=== PATIENT | male | born 1975 | race Caucasian/White ===

== ENCOUNTER 2023-04-05 10:03 | Observation (INO) | payer OTHER, SELFPAY ==
[2023-04-05] VITALS (34 sets, daily range): BP systolic 125–211; BP diastolic 86–132; PULSE 83–100; RESP 11–24; TEMP 36.6–36.7; O2SAT 94–98; BMI 32.3
--- NOTE | 2023-04-05 10:09 | ECG_ITS ---
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 Measurements Intervals [place] Rate: 110 P: 36 ME: 140 QRS: 15 QRSD: 82 T: 72 QT: 299 QTc: 406 Interpretive Statements SINUS TACHYCARDIA WITH FREQUENT VENTRICULAR PREMATURE COMPLEXES ABNORMAL RHYTHM ECG No previous ECG available for comparison Electronically Signed On 04-05-2023 20:25:59 CDT by Karlie Azul M.D. [id number]
--- NOTE | 2023-04-05 10:26 | ECG_ITS ---
[facility] Test Date: 2023-04-05 Pat Name: Merrick Neri Department: Room: Gender: Male Director Life Insurance: : 1975 Requested By: Daniel Titus Order Number: [id number] Sonia MD: Karlie Azul M.D. Measurements Intervals [place] Rate: 108 P: 39 IA: 152 QRS: -1 QRSD: 85 T: 76 QT: 308 QTc: 414 Interpretive Statements SINUS TACHYCARDIA WITH FREQUENT VENTRICULAR PREMATURE COMPLEXES POSSIBLE LEFT ATRIAL ENLARGEMENT [-0.1mV P-WAVE IN V1/V2] ABNORMAL RHYTHM ECG No previous ECG available for comparison Electronically Signed On 04-05-2023 20:25:54 CDT by Karlie Azul M.D. [id number] f
--- NOTE | 2023-04-05 10:42 | W.ED.CHESTPA ---
HPI - Chest Pain General: Chief Complaint: Chest Pain Stated Complaint: chest pain/SOB Time Seen by Provider: 04/05/23 10:27 Source: patient Mode of arrival: ambulatory History of Present Illness: 48-year-old male presents to the emergency room with complaints of chest pain. He has had chest pain with exertion relieved by rest off and on for the last couple of months its been getting progressively worse over the last few days. He notices less and less exertion will precipitate chest pain. He estimates he can walk a couple of blocks and then he will get chest pain significant enough that he has to stop activity will take about 30 minutes before it resolves. Patient is obese is significantly hypertensive diabetic as well. He is a smoker. He has a family history of coronary disease his father had his first OH in his 40s. He is currently diaphoretic he denies any radiation of chest pain rates his current chest pain is 4 out of 10. Patient was not doing any exertional activity that precipitated the chest pain this morning. MD complaint: chest pain Onset (ago): month(s) Timing of current episode: episodic and increasing Prior episodes: Yes Onset: during rest Pain location: substernal Pain radiation: none Quality: aching and heaviness Relieving factors: nothing Exacerbating factors: exertion Associated symptoms: Reports palpitations; Deny abdominal pain, diaphoresis, dyspnea, fever(s), leg edema, nausea, sense of impending doom, syncope or vomiting Treatment prior to arrival: none Risk Factors: Coronary artery disease risk factors: diabetes, smoking history, hyperlipidemia, hypertension and family history of CAD before age 50 Review of Systems Const: Denies: fever(s), chills or diaphoresis ENMT: Denies: throat pain, ear or mastoid pain, nasal discharge or nasal congestion Card: Reports: chest pain, palpitations and irregular heart rhythm; Denies: syncope Resp: Denies: dyspnea GI: Denies: abdominal pain, nausea or vomiting : Denies: flank pain, dysuria, urinary frequency or urinary urgency Skin/Breast: Denies: rash or pruritus PFSH ED PFSH: Medical History (Updated 04/08/23 @ 09:41 by Daniel Taylor DO) Diabetes GERD (gastroesophageal reflux disease) Hypertension Surgical History (Updated 04/05/23 @ 12:48 by Jose Ortiz MD) History of elbow surgery History of foot surgery History of knee surgery History of mastoidectomy Family History Other CAD (coronary artery disease) Social History (Updated 04/05/23 @ 12:48 by Jose Ortiz MD) Smoking and tobacco status: current some day smoker cigarettes and smokeless tobacco Alcohol intake: current Physical Exam Const: GENERAL APPEARANCE: cooperative and comfortable ORIENTATION/CONSCIOUSNESS: Yes awake, Yes oriented to person, Yes oriented to place and Yes oriented to time OTHER: Diaphoretic HENMT: COMMON NORMALS: normocephalic, atraumatic and hearing grossly normal bilaterally HEAD & SCALP: normocephalic and atraumatic Resp: COMMON NORMALS: normal respiratory effort, No retractions, No use of accessory muscles and clear to auscultation bilaterally AUSCULTATION: clear to auscultation bilaterally Cardio: COMMON NORMALS: regular rate, regular rhythm and No murmurs present (Cardio) RATE: regular rate RHYTHM: regular rhythm GI: COMMON NORMALS: Soft to palpation and No hepatosplenomegaly present AUSCULTATION: Yes normoactive bowel sounds PALPATION: Yes Soft to palpation, No Tenderness to palpation present (GI), No Guarding due to palpation present (GI) and Yes No hepatosplenomegaly present Extremity: COMMON NORMALS: normal to inspection, capillary refill normal, no clubbing, cyanosis or edema, no calf tenderness and no pedal edema Neuro: SENSORIUM/ORIENTATION: Yes oriented to person, Yes oriented to place and Yes oriented to time Skin: COMMON NORMALS: no rashes or lesions noted GENERAL SKIN EXAM: no rashes or lesions noted Course Vital Signs: Vital signs: Vital Signs Temperature 97.9 F 04/06/23 10:10 Pulse Rate 82 04/06/23 10:10 Respiratory Rate 19 H 04/06/23 10:10 Blood Pressure 124/77 04/06/23 10:10 Pulse Oximetry 95 04/06/23 10:10 Oxygen Delivery Me thod Room Air 04/06/23 04:00 MDM - Chest Pain Medical Decision Making Patient initially treated as if you were a STEMI however there are no acute ST elevations. Clinically patient appears very unstable he is profusely diaphoretic clutching at his chest complaining of severe chest pain. EKGs repeated multiple times with no acute ST changes or elevations or depressions. Patient was loaded with Plavix given aspirin and also given heparin. CT of the head was negative he had complained of little numbness in his face. Discussed Dr. Segura. Because of patient's risk factors and history of progressively worsening chest pain now having chest pain at rest he will take patient directly to the [facility]. Lab Data 04/06/23 03:18 04/06/23 03:[address] 04/05/23 11:04 IMPRESSION: 1. No evidence of intracranial hemorrhage or mass effect. 2. Intracranial vascular calcification. 3. Prior postoperative changes canal wall up RIGHT mastoidectomy. 4. No acute intracranial findings. Discussed with Daniel Taylor DO at 04/05/2023 11:27 AM. Chest X-Ray 04/05/23 12:51 IMPRESSION: No acute findings. Laboratory Results WBC 6.7 10^3/uL (4.0-10.0) 04/05/23 10:40 RBC 6.60 10^6/uL (4.1-5.3) H 04/05/23 10:40 Hgb 15.4 g/dL (11.7-16.6) 04/05/23 10:40 Hct 51.2 % (42.0-52.0) 04/05/23 10:40 MCV 77.6 fl (80-94) L 04/05/23 10:40 MCH 23.3 pg (28.0-34.0) L 04/05/23 10:40 MCHC 30.1 g/dL (30.0-36.0) 04/05/23 10:40 RDW 18.1 % (12.1-15.1) H 04/05/23 10:40 Plt Count 170 10^3/cmm (130-400) 04/05/23 10:40 MPV 9.5 fL (7.4-10.4) 04/05/23 10:40 Neut % (Auto) 52.2 % 04/05/23 10:40 Lymph % (Auto) 36.0 % 04/05/23 10:40 Pierce % (Auto) 10.1 % 04/05/23 10:40 Eos % (Auto) 0.9 % 04/05/23 10:40 Baso % (Auto) 0.7 % 04/05/23 10:40 Neut # (Auto) 3.51 10^3/uL (1.8-7.7) 04/05/23 10:40 Lymph # (Auto) 2.4 10^3/uL (0.8-4.8) 04/05/23 10:40 Pierce # (Auto) 0.7 10^3/uL (0.2-0.9) 04/05/23 10:40 Eos # (Auto) 0.1 10^3/uL (0.0-0.8) 04/05/23 10:40 Baso # (Auto) 0.1 10^3/uL (0.0-0.1) 04/05/23 10:40 Nucleated RBC % (auto) 0 % 04/05/23 10:40 Nucleated RBCs # 0.0 /100WBC 04/05/23 10:40 Sodium 134 mmol/L (136-145) L 04/05/23 10:40 Potassium 4.0 mmol/L (3.5-5.1) 04/05/23 10:40 Chloride 92 mmol/L (98-107) L 04/05/23 10:40 Carbon Dioxide 26 mmol/L (22-29) 04/05/23 10:40 Anion Gap 20.0 (5-19) H 04/05/23 10:40 BUN 11 mg/dL (6-20) 04/05/23 10:40 Creatinine 0.8 mg/dL (0.7-1.2) 04/05/23 10:40 GFR Calculation 102.7 mL/min (90-130) 04/05/23 10:40 Glucose 168 mg/dL (65-115) H 04/05/23 10:40 POC Glucose 157 mg/dL (70-110) H 04/05/23 10:49 Calculated Osmolality 281 mOsm/kg (285-295) L 04/05/23 10:40 Calcium 11.2 mg/dL (8.5-10.5) H 04/05/23 10:40 Magnesium 1.6 mg/dL (1.7-2.3) L 04/05/23 10:40 Total Bilirubin 0.9 mg/dL (0.15-1.2) 04/05/23 10:40 AST 214 U/L (0-40) H 04/05/23 10:40 ALT 278 U/L (0-41) H 04/05/23 10:40 Alkaline Phosphatase 160 U/L (40-130) H 04/05/23 10:40 Troponin T Baseline 35 ng/L (0-15) H 04/05/23 10:40 Total Protein 8.7 g/dL (6.6-8.7) 04/05/23 10:40 Albumin 4.9 g/dL (3.5-5.2) 04/05/23 10:40 Globulin 3.8 g/dL (1.3-4.6) 04/05/23 10:40 TSH 1.39 uIU/mL (0.27-4.20) 04/05/23 10:40 Hepatitis A IgM Ab Non-reactive (Nonreactive) 04/05/23 10:40 Hep Bs Antigen Non-reactive (Nonreactive) 04/05/23 10:40 Hep B Core IgM Ab Non-reactive (Nonreactive) 04/05/23 10:40 Hepatitis C Antibody Non-reactive (Nonreactive) 04/05/23 10:40 Discharge Plan Discharge Patient Disposition: Admitted As Inpatient Admit Provider: Jose Ortiz Clinical Impression: Chest pain, Unstable angina pectoris Condition: Stable Discharge Diet: Cardiac and Diabetic Discharge Activity: Increase activity as tolerated Coding Level of Care Code ED Grain Oilseed Or Pasture Grower for Jigar Vallecillo
[2023-04-05] MEDS: morphine 4 mg/mL SDV 1 mL IVP (10:45)
[2023-04-05] MEDS: aspirin 81 mg Chew Tablet 324 MG PO (10:46)
[2023-04-05] MEDS: clopidogrel 300 mg Tablet 600 MG PO (10:46)
[2023-04-05 10:47] LABS: Basophils # 0.1 10^3/uL (0.0-0.1); Basophils % 0.7 %; Eosinophils # 0.1 10^3/uL (0.0-0.8); Eosinophils % 0.9 %; Hematocrit 51.2 % (42.0-52.0); Hemoglobin 15.4 g/dL (11.7-16.6); Lymphocytes # 2.4 10^3/uL (0.8-4.8); Mean Corpuscular HGB Conc 30.1 g/dL (30.0-36.0); Mean Corpuscular Hemoglobin 23.3 pg (28.0-34.0); Mean Corpuscular Volume 77.6 fl (80-94); Mean Platelet Volume 9.5 fL (7.4-10.4); Monocytes # 0.7 10^3/uL (0.2-0.9); Monocytes % 10.1 %; Neutrophils # 3.51 10^3/uL (1.8-7.7); Neutrophils % 52.2 %; Nucleated Red Blood Cells % 0 %; Platelet Count 170 10^3/cmm (130-400); Red Cell Distribution Width 18.1 % (12.1-15.1); White Blood Count 6.7 10^3/uL (4.0-10.0)
[2023-04-05] MEDS: nitroglycerin drip 50 MG/250 ML PREMIX IV (10:51)
[2023-04-05 10:59] LABS: Glucose Point of Care 157 mg/dL (70-110)
--- NOTE | 2023-04-05 11:04 | CT_ITS ---
WS: [id number] CT HEAD TECHNIQUE: Noncontrast CT of the head obtained from the skullbase to the vertex. CLINICAL INFORMATION: Accelerated hypertension right-sided facial numbness COMPARISON: None. DLP: All CT scans at [facility] use at least one of these dose optimization techniques: automated e xposure control; mA and/or kV adjustment per patient size (includes targeted exams where dose is matc hed to clinical indication); or iterative reconstruction. FINDINGS: No evidence of intracranial hemorrhage or mass effect. Ventricular system and basal cisterns are farias nt. Minimal small vessel changes with mild frontal parenchymal volume loss. No extra-axial fluid pedro ections. No evidence of mass or mass effect. Normal biswas-white differentiation. Paranasal sinuses and mastoid air cells are well aerated. Mild mucosal thickening in the ethmoid air cells. Intracranial vascular calcification. Prior postoperative changes canal wall up RIGHT mastoidec robert. Normal posterior nasopharynx. CT/CT head thrombolytic 52828 IMPRESSION: 1. No evidence of intracranial hemorrhage or mass effect. 2. Intracranial vascular calcification. 3. Prior postoperative changes canal wall up RIGHT mastoidectomy. 4. No acute intracranial findings. Discussed with Daniel Taylor DO at 04/05/2023 11:27 AM.
[2023-04-05] MEDS: heparin 5,000 unit/mL INJ 1 mL IV (11:05)
--- NOTE | 2023-04-05 11:06 | PC.PHAR ---
pt states he takes care of his own medications-pt states he stop taking his buspirone 15mg,fluoxetine 20mg and aripiprazole 10mg about 6 weeks ago-pt [facility] medications entered are what the pt states he takes
--- NOTE | 2023-04-05 11:12 | XACV_ITS ---
Exam Room: [facility] Ht: 198 cm Wt: 127 kg BSA: 2.67 m2 Gender: Male : 1975 Any Known Allergies: No known allergies Exam Priority: Routine Procedure(s): Procedure Description: Diagnostic procedure Procedure Description: Left Heart Catheterization Procedure Description: Left ventriculography Procedure Description: Coronary Angiography Diagnostic Cath Status: Urgent Diagnostic Findings * INDICATION: Unstable angina. * No significant disease noted in the Left Main, Left Anterior Descending, Right, or Circumflex coronary arteries. * Coronary angiography shows right dominance. Conclusions 1. No significant disease noted in the Left Main, Left Anterior Descending, Right, or Circumflex coronary arteries. 2. Normal left ventricular systolic function. Ejection fraction of 55%. Recommendations * Aggressive risk factor modification. * Outpatient cardiology follow up in 4 weeks. Diagnostic RX Recommendation: medical therapy and/or counseling Ventriculography Ejection Fraction: 55.0 % Pressures Phase:Rest AO : 154 / 85 ( 115 ) @ 12:47:00 PM 138 / 70 ( 96 ) @ 12:56:00 PM 140 / 75 ( 99 ) @ 12:56:00 PM LV : 167 / -29 / 3 @ 12:55:00 PM 166 / -19 / 8 @ 12:56:00 PM 172 / -15 / 12 @ 12:56:00 PM Valves Phase:DefaultPhase AV : 20.0 @ 6:49:37 AM AV Mean Gradient: 32.0 @ 6:49:37 AM 32.0 @ 6:49:37 AM Clinical Evaluation EBL: 5mL-10mL Procedural Details Procedure Consent Obtained. Pre-Procedure Time Out. Identified patient by full name and date of as verbalized by the patient/guarantor. Does the consent match the physician's order: Yes. Accurate & Complete Informed Consent: Yes. Inpatient/Outpatient History & Physical on Chart: Yes. If H&P is completed, is and addenduem needed: No. Visualize and Verify Site with Patient/Guarantor: N/A. Relevant Radiology Images available: Yes. The risks, benefits, and alternatives of sedation and/or procedure were discussed by physician. The patient agrees to continue. Procedure started. [facility] Clinical Fraility Score: 2: Well. Automotive Specialty Technician Indications: Worsening Angina/Unstable Angina. Chest Pain Symptom Assessment: Typical Angina Symptoms. Cardiovascular Instability: No. Correct patient, site and procedure confirmed by cath team. PERRLA. Strong, equal hand flavoring machine operator bilaterally. Lungs clear x 5 lobes. IV Site on Arrival: 18 gauge in the right anticubital. IV Site on Arrival: 18 gauge in the left anticubital. IV Fluids: 0.9% NaCl at KVO. 0 mL infused prior to oven laborer. Pre Procedural Pulses: bilateral dorsalis pedis was 3+. Pre Procedural Pulses: bilateral posterior tibial was 2+. Oxygen started at 2liters/min via nasal canula. bilateral groins was prepped with chloroprep then draped in the usual sterile fashion. Physician notified. Baseline sample Acquired. HR: 100 BPM. Patient's family unavailable. Equipment: 6F - Femoral. Cardiac Cath Pack. ACIST Manifold Kit Model BT 2000. Heparinized Saline (2 units/mL), 1000 mL bag. Kit, Micropuncture. Physician arrived. Physician scrubbed in. Immediate Pre-Procedure Time Out. Correct Patient: Yes; Correct Procedure: Yes; Correct Site: Yes; Correct Patient Position: Yes; Correct Supplies: Yes; Dried Flammable Prep: Yes; Blood Products Available: N/A;. Lidocaine 1% infiltrated to the right groin. Arterial access obtained with micropuncture set. A 5 sammarinese JL4 catheter in over the standard J wire. Multiple views taken of left coronary artery. Catheter removed over the standard J wire. A 5 sammarinese JR4 catheter in over the standard J wire. Multiple views taken of right coronary artery. Catheter removed over the standard J wire. A 5 sammarinese Angled Pig catheter in over the standard J wire. EDP Sample taken: LV 167/-30,3; HR: 103 BPM; SpO2: 98%. LV gram performed in KENNY @ 10 mL/second for a total of 30 mL. EDP Sample taken: LV 166/-20,8; HR: 99 BPM; SpO2: 100%. Pullback taken: LV 172/-16,12; AO 138/70(96); Mean: 32mmHg, Peak to Peak: 20mmHg, SEP: 10sec/min; HR: 100 BPM; SpO2: 99%. Catheter removed over the standard J wire. A Right femoral angiogram was performed to determine safe placement of closure device. A Angio-Seal VIP (St[employer] [facility]) was successful obtaining hemostatsis at the Right Femoral artery insertion site. Angioseal VIP placed without complications. No signs or symptoms of hematoma noted. Sterile dressing applied per usual sterile fashion. LOT # [id number]. EXP 2023-07-05. Post Procedure: Pulses reassessed and unchanged. PERRLA. Strong, equal hand flavoring machine operator bilaterally. No VTE prophylaxis required. Medication's Wasted: Heparin = 1000 Units. Total IV fluids: 30 mL. Post-op diagnosis: Non-obstructive CAD. Complications: none. Estimated blood loss: 5mL-10mL. Responsiveness - Normal response to verbal stimuli; alert and oriented, PERRLA. Airway - Unaffected, no intervention required; spontaneous ventilation. Circulation: W/N/L, pulses unchanged. Nausea/Vomiting: No. Procedure completed. Patient transferred by bed to CPRU. Vital chart was stopped. Access Site Site: Right Femoral artery Sheath Size: 6 Fr Hemostasis Method: Angio-Seal VIP (St. Tony) Hemostasis Success: Successful Procedure Medications Start: 11:41 AM Stop: 11:41 AM Medication: Versed Amount: 1 mg Route: I.V. Start: 11:41 AM Stop: 11:41 AM Medication: Fentanyl Amount: 50 mcg Route: I.V. Start: 11:43 AM Stop: 11:43 AM Medication: Hydralazine Amount: 10 mg Route: I.V. Start: 11:50 AM Stop: 11:50 AM Medication: Fentanyl Amount: 50 mcg Route: I.V. Start: 11:51 AM Stop: 11:51 AM Medication: Versed Amount: 1 mg Route: I.V. I, the attending physician, have reviewed and verified all procedure medications. Yes, all medications given per verbal order History/Risk Factors Hypertension: Yes Dyslipidemia: No Peripheral Arterial Disease (PAD): No Myocardial Infarction (NH): No Obesity: Yes Renal Disease: No Tobacco Use: Never Prior Interventions PCI: No CABG: No Valve Surgery: No Report Signatures Finalized by Tho Segura MD on 04/13/2023 11:25 AM
[2023-04-05 11:16] LABS: Blood Urea Nitrogen 11 mg/dL (6-20); Carbon Dioxide 26 mmol/L (22-29); Glomerular Filtration Rate 102.7 mL/min (90-130); Total Bilirubin 0.9 mg/dL (0.15-1.2); Total Protein 8.7 g/dL (6.6-8.7)
--- NOTE | 2023-04-05 11:16 | USCV_ITS ---
Merrick Neri Age: 48 Gender: M : 1975 Exam Date: 04/05/2023 15:18 Ordering Phys: Jose Ortiz MD Technologist: Wolfgang Alicia [place] [facility] [place]: chest pain BP: 125 / 92 HR: 84 Rhythm: Sinus Technical Quality: Adequate MEASUREMENTS (Male / Female) Normal Values 2D ECHO LVOT Diameter 2.1 cm LV Ejection Fraction MOD 2C 62.3 % LV Ejection Fraction 2C AL 61.0 % LA Diameter 4.0 cm LA Width 4.0 cm LA Height 5.6 cm RA Width 3.9 cm RA Height 4.7 cm Aorta at Sinotubular Diameter 2.6 cm M-MODE Aortic Annulus Diameter 3.4 cm LA Ao Ratio MM 1.2 MV E Point Septal Separation 0.4 cm DOPPLER AV Peak Velocity 154.0 cm/s LVOT Peak Velocity 90.0 cm/s AV Area Cont Eq vti 2.3 cm squared AV Area Cont Eq pk 2.1 cm squared MV Peak Velocity 70.0 cm/s MV Area PHT 3.7 cm squared Mitral E to A Ratio 1.0 MV E' Velocity 29.0 cm/s Mitral E to MV E' Ratio 6.3 Mitral E to LV E' Lateral Ratio 7.7 Mitral E to LV E' Septal Ratio 5.4 Right Atrial Pressure 8.0 mmHg PV Peak Velocity 113.7 cm/s RV Acceleration Time 0.1 s RV Ejection Time 0.3 s RV AcT/ET 0.5 FINDINGS Left Ventricle Left ventricle is normal in size. LV systolic function is normal with EF of 60-65%. No regional wall motion abnormalities are seen. Grade 1 diastolic dysfunction Right Ventricle Normal in size and function Right Atrium Normal in size Left Atrium Normal in size Mitral Valve Structurally normal mitral valve. Trace mitral regurgitation. Aortic Valve Structurally normal aortic valve. No significant stenosis or regurgitation seen. Tricuspid Valve Mild tricuspid regurgitation. Insufficient TR jet to calculate RVSP. Pulmonic Valve Not well-visualized Pericardium Normal Aorta Normal in size IVC Not well visualized CONCLUSIONS LV systolic function is normal with EF of 60 to 65%. Grade 1 diastolic dysfunction. Trace mitral regurgitation. Mild tricuspid regurgitation. No comparison studies are available Tho Segura MD (Electronically Signed) Final Date: 06 April 2023 08:45 S
[2023-04-05 11:18] LABS: Troponin(5th) Baseline 35 ng/L (0-15)
--- NOTE | 2023-04-05 11:28 | PM.CONSULT ---
Providers/Reason For Consult Consulting Physician/Specialty*: Tho Segura MD/ Cardiology Reason for Consult*: Unstable angina Requesting Physician: Dr Taylor Attending Physician: Dr Ortiz History of Present Illness History of Present Illness Merrick Neri is a 48 year old male with past medical history of diabetes, hypertension who presented to hospital with several hours of chest pain. It has improved but still ongoing. He is diaphoretic. EKG shows normal sinus rhythm with frequent PVCs. He also felt facial numbness on the right side. That has improved. His blood pressure was over 200 mmHg at presentation. He was put on nitro drip and her blood pressure is improved and were in 170 to 180 mmHg range. Patient has been having on and off chest pain for almost 2 months Review of Systems Const: Denies: fever(s), chills or diaphoresis ENMT: Denies: throat pain, ear or mastoid pain, nasal discharge or nasal congestion Card: Reports: chest pain, palpitations and irregular heart rhythm; Denies: syncope Resp: Denies: dyspnea GI: Denies: abdominal pain, nausea or vomiting : Denies: flank pain, dysuria, urinary frequency or urinary urgency Skin/Breast: Denies: rash or pruritus Medications/Allergies Home Medications Medication Instructions Recorded Confirmed Last Taken Type empagliflozin 25 mg tablet 25 mg PO QAM 04/05/23 04/05/23 04/05/23 08:00 History (Jardiance) glipizide 5 mg tablet 5 mg PO BID 04/05/23 04/05/23 04/05/23 08:00 History hydrochlorothiazide 25 mg tablet 25 mg PO QAM 04/05/23 04/05/23 04/05/23 08:00 History metformin 1,000 mg tablet 1,000 mg PO BID 04/05/23 04/05/23 04/05/23 08:00 History metoprolol succinate 200 mg 100 mg PO QAM 04/05/23 04/05/23 04/05/23 08:00 History tablet,extended release 24 hr omeprazole 20 mg capsule,delayed 20 mg PO QAM 04/05/23 04/05/23 04/05/23 08:00 History release prazosin 2 mg capsule 4 mg PO BEDTIME 04/05/23 04/05/23 Unknown History sildenafil 100 mg tablet 50 - 100 mg PO DAILY PRN Erectile 04/05/23 04/05/23 Unknown History Dysfunction spironolactone 25 mg tablet 50 mg PO QAM 04/05/23 04/05/23 04/05/23 08:00 History testosterone cypionate 200 mg/mL 200 mg IM Q14D 04/05/23 04/05/23 Unknown History intramuscular oil Allergies Allergy/AdvReac Type Severity Reaction Status Date / Time No Known Allergies Allergy Verified 04/05/23 11:00 Current Medications Generic Name Dose Route Start Last Admin Trade Name Freq PRN Reason Stop Dose Admin Heparin Sodium (Porcine) 0 unit 04/05/23 10:37 04/05/23 11:05 Heparin 5,000 Unit/Ml Inj 1 Ml IV 4,000 unit PRN PRN Administration Heparin weight-base protocol Protocol Nitroglycerin/Dextrose 50 mg in 250 mls @ 0 mls/hr 04/05/23 10:45 04/05/23 11:05 Nitroglycerin Drip IV 15 mcg/min .Q0M MIRIAM 4.5 mls/hr Titration Protocol Per Protocol PFSH Acute PFSH: Medical History Diabetes Hypertension Family History Other CAD (coronary artery disease) Vitals/I&O/Wt Last Vital Signs Temp 97.8 F 04/05/23 10:18 Pulse 84 04/05/23 10:18 Resp 22 H 04/05/23 10:45 BP 211/132 04/05/23 10:18 Pulse Ox 97 04/05/23 10:45 O2 Del Method Room Air 04/05/23 10:18 04/04/23 04/05/23 04/05/23 22:59 06:59 14:59 Intake Total 0.7 / 0.7 Balance 0.7 / 0.7 Weight last 48 hrs Weight 280 lb Physical Exam Narrative: GENERAL: Patient is alert, awake and oriented x3. [] NECK: No jugular vein distension. [] HEENT: No cyanosis. No icterus. No pallor. [] HEART: Regular S1 and S2. Grade 2/6 systolic murmur LUNGS: Clear to auscultate bilaterally. [] ABDOMEN: Soft CENTRAL NERVOUS SYSTEM: Grossly nonfocal. [] EXTREMITIES: Lower extremities with no edema bilaterally. Data 04/05/23 10:40 04/05/23 10:40 A&P Assessment and plan (1) Unstable angina: (2) Hypertension: (3) Diabetes: Plan Patient has significant chest pain symptoms that are ongoing associated with diaphoresis and significant PVCs. We will rule out hemorrhage with a CT scan and if no bleed, we will proceed with urgent coronary angiogram with possible percutaneous coronary intervention. Risks and benefits of the procedure of been discussed with the patient. Continue nitro drip for now. We will uptitrate antihypertensive medications after the procedure. Order echocardiogram. Diabetes management per primary team. Thank you for involving us with care of this patient. We will continue to follow. Please call with questions. Consult Attestations Medical Necessity Statement: Care expected to cross 2 midnights. Coding Level of Care Code Acute Code for [facility] Fwd Diagnoses Unstable angina I20.0 Hypertension I10 Diabetes E11.9
[2023-04-05 11:33] LABS: Albumin Level 4.9 g/dL (3.5-5.2); Chloride 92 mmol/L (98-107); Globulin 3.8 g/dL (1.3-4.6); Sodium 134 mmol/L (136-145)
[2023-04-05 11:49] LABS: Magnesium 1.6 mg/dL (1.7-2.3); Thyroid Stimulating Hormone 1.39 uIU/mL (0.27-4.20)
--- NOTE | 2023-04-05 12:05 | SUR.PHASEI ---
POST CATH NOTE Received patient from animal laboratory helper. Status post cardiac catheterization via the right radial approach. TR band in place- No hematoma formation noted. MD at bedside. Dr Segura in to discuss findings. Verbal post cath instructions went over with the patient which the understood. Call light given. Informed to call for needs.
--- NOTE | 2023-04-05 12:09 | ECG_ITS ---
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 Measurements Intervals [place] Rate: 100 P: 29 [place]: 164 QRS: 15 QRSD: 90 T: 72 QT: 316 QTc: 409 Interpretive Statements SINUS TACHYCARDIA WITH FREQUENT VENTRICULAR PREMATURE COMPLEXES ABNORMAL RHYTHM ECG Compared to ECG 04/05/2023 10:38:49 No significant changes Electronically Signed On 04-05-2023 20:30:00 CDT by Karlie Azul M.D. [id number]
[2023-04-05 12:14] LABS: Alanine Aminotransferase 278 U/L (0-41); Alkaline Phosphatase 160 U/L (40-130); Aspartate Amino Transferase 214 U/L (0-40); Calcium 11.2 mg/dL (8.5-10.5); Glucose 168 mg/dL (65-115); Osmolality Calculated 281 mOsm/kg (285-295)
--- NOTE | 2023-04-05 12:43 | PM.HP ---
Providers/Chief Complaint Admitting Physician: Jose Ortiz MD Chief Complaint: chest pain/SOB History of Present Illness Merrick Neri is a 48 year old male urgency department with complaints of chest discomfort, on and off for the last month that seem to be related to exertion and go away with rest. In the last several days the discomfort has been persistent. He reports it is a dull, to sharp ache in the left side of his chest. No nausea or vomiting. It is associated with some shortness of breath. Denies any blood in his stool, black or tarry stools, abdominal pain. Usually when the discomfort comes on it lasts 30 minutes to an hour. He has not been ill lately with any fever, or cough. He is not for sure what his blood pressures been running.He has had a little bit of right facial numbness today. Denies any focal weakness. In the emergency department blood pressure was noted to be significantly elevated. EKG demonstrated trigeminy. He was placed on a nitroglycerin and heparin drip and cardiology was called. He went directly to angiogram suite. No flow-limiting disease was noted. He had complete resolution of his facial numbness with lowering of his blood pressure. Review of Systems General: Reports: 10 or more systems reviewed and unremarkable except in HPI and below Card: Reports: chest pain; Denies: swelling of feet/ankles Resp: Reports: dyspnea; Denies: productive cough or non-productive cough GI: Denies: abdominal pain, nausea, hematochezia or melena Medications/Allergies Home Medications Medication Instructions Recorded Confirmed Last Taken Type empagliflozin 25 mg tablet 25 mg PO [facility] 04/05/23 04/05/23 04/05/23 08:00 History (Jardiance) glipizide 5 mg tablet 5 mg PO BID 04/05/23 04/05/23 04/05/23 08:00 History hydrochlorothiazide 25 mg tablet 25 mg PO QAM 04/05/23 04/05/23 04/05/23 08:00 History metformin 1,000 mg tablet 1,000 mg PO BID 04/05/23 04/05/23 04/05/23 08:00 History metoprolol succinate 200 mg 100 mg PO QA 04/05/23 04/05/23 04/05/23 08:00 History tablet,extended release 24 hr omeprazole 20 mg capsule,delayed 20 mg PO [facility] 04/05/23 04/05/23 04/05/23 08:00 History release prazosin 2 mg capsule 4 mg PO BEDTIME 04/05/23 04/05/23 Unknown History sildenafil 100 mg tablet 50 - 100 mg PO DAILY PRN Erectile 04/05/23 04/05/23 Unknown History Dysfunction spironolactone 25 mg tablet 50 mg PO QAM 04/05/23 04/05/23 04/05/23 08:00 History testosterone cypionate 200 mg/mL 200 mg IM Q14D 04/05/23 04/05/23 Unknown History intramuscular oil Allergies Allergy/AdvReac Type Severity Reaction Status Date / Time No Known Allergies Allergy Verified 04/05/23 11:00 PFSH Acute PFSH: Medical History (Updated 04/05/23 @ 12:52 by Jose Ortiz MD) Diabetes GERD (gastroesophageal reflux disease) Hypertension Surgical History (Updated 04/05/23 @ 12:48 by Jose Ortiz MD) History of elbow surgery History of foot surgery History of knee surgery History of mastoidectomy Family History Other CAD (coronary artery disease) Social History (Updated 04/05/23 @ 12:48 by Jose Ortiz MD) Smoking and tobacco status: current some day smoker cigarettes and smokeless tobacco Alcohol intake: current Vitals/I&O/Wt Last Vital Signs Temp 97.8 F 04/05/23 10:18 Pulse 84 04/05/23 10:18 Resp 22 H 04/05/23 10:45 BP 211/132 04/05/23 10:18 Pulse Ox 97 04/05/23 10:45 O2 Del Method Room Air 04/05/23 10:18 04/04/23 04/05/23 04/05/23 22:59 06:59 14:59 Intake Total 0.7 / 0.7 Balance 0.7 / 0.7 Weight last 48 hrs Weight 127.006 kg Physical Exam Narrative: General exam is a white male, reporting chest discomfort when I initially saw him at approximately 2/10. Denied any facial numbness. HEENT: Atraumatic and normocephalic. Oropharynx clear Neck is supple no lymphadenopathy or thyromegaly Cardiovascular regular rate and rhythm, no murmur Lungs clear no wheezing or crackles Abdomen is soft nontender with positive bowel sounds. No obvious organomegaly exams deferred Extremities no cyanosis clubbing or edema, cap refill brisk Skin no rash Neuro no focal deficits Data 04/05/23 10:40 04/05/23 10:40 Other Labs: LFTs are elevated. AST 214, ALT 278, alk phos 160, troponin 35, bilirubin normal, TSH normal, magnesium low at 1.6. Calcium 11.2, elevated. Albumin 4.9. CT no acute changes. Some vascular calcification is noted. I have ordered a chest x-ray Which I reviewed demonstrates trigeminy, normal axis, nonspecific ST-T wave changes. Rate is approximately 100. Rhythm is sinus. A&P Assessment and plan (1) Chest pain: Patient presented to the hospital with significant chest discomfort. There was concern for acute coronary syndrome and he was taken to angiogram lab where no flow-limiting stenosis was noted. Likely his chest discomfort was secondary to hypertensive emergency. This resolved with nitroglycerin drip and lowering of blood pressure. At this point we will continue aspirin 81 mg daily Obtain a chest x-ray Check lipid profile in the morning (2) Hypertensive urgency: Patient presented with hypertensive emergency Symptoms included right facial numbness, chest discomfort The symptoms have since resolved with a blood pressure lowering He did take his losartan this morning. Will provide hydralazine as needed. We will initiate losartan 50 mg a day first dose now. Continue his Aldactone. Stop hydrochlorothiazide secondary to hypercalcemia. Consider adding other blood pressure medicine as needed, such as amlodipine. Associated with bigeminy. TSH checked and normal (3) Transaminitis: Patient presents with transaminitis. He reports he drinks on occasion. I do not see evidence of alcohol withdrawal currently. We will obtain acute hepatitis panel. Repeat LFTs in the morning. Consider imaging as an outpatient or inpatient depending on clinical course and repeat enzyme levels (4) Hypercalcemia: Hypercalcemia is noted on laboratory We will hydrate, hold hydrochlorothiazide, and reevaluate with a calcium level in the morning (5) Diabetes: Consistent carb diet Insulin sliding scale Plan Hypomagnesemia, supplement history of obstructive sleep apnea. BiPAP at night when sleeping Multiple other medical problems as outlined in past medical history Full code SCDs for DVT prophylaxis. Was on heparin drip which does not need to be continued. No anticoagulation tonight as just received angiogram and currently contraindicated. Reevaluate tomorrow Attestations Medical Necessity Statement*: Will need less than 2 midnight stay for evaluation and treatment of chest discomfort and hypertensive emergency Diagnoses Chest pain R07.9 Hypertensive urgency I16.0 Transaminitis R74.01 Hypercalcemia E83.52 Diabetes E11.9 Time Spent (min) 49
--- NOTE | 2023-04-05 12:46 | USCV_ITS ---
Merrick Neri Age: 48 Gender: M : 1975 Exam Date: 04/05/2023 14:55 Ordering Phys: Jose Ortiz MD Technologist: Wolfgang Alicia [place] [facility] [place]: facial numbness Risk Factors: Previous Vascular Surgery: Right Brachial BP: / Left Brachial BP: / Right Left Velocity (cm/s) Spectral Plaque Velocity (cm/s) Spectral Plaque Syst/Diast Broadening Syst/Diast Broadening 202.00/24.90 Prox CCA 162.90/ 26.10 138.30/18.60 Mid CCA 124.30/ 21.80 59.80/ 16.20 Distal CCA 95.70 / 20.50 110.40/26.30 Prox ICA 67.70 / 16.00 70.70/ 26.40 Mid ICA 71.50 / 19.20 69.10/ 30.30 Distal ICA 58.70 / 19.20 130.10 ECA 148.60 0.51 ICA/CCA 0.58 Antegrade Vertebral Antegrade 55.20/ 15.50 cm/s 61.30/ 12.80 cm/s Tri Subclavian Tri 193.0 94.30 0 FINDINGS Comparison: none available. No significant elevation of systolic or diastolic velocities. Waveforms are normal. Diffuse, mild bilateral scattered calcified plaque and intimal thickening throughout the common carotid arteries and extending through the bifurcation. Antegrade vertebral arteries. CONCLUSIONS Bilateral ICA stenosis less than 50%. Mild diffuse carotid atherosclerosis. Dr. Chelsey Felipe DO (Electronically Signed) Final Date: 06 April 2023 06:04 S
--- NOTE | 2023-04-05 12:51 | XRR_ITS ---
PROCEDURE INFORMATION: Exam: XR Chest Exam date and time: 04/05/2023 1:00 PM Age: 48 years old Clinical indication: Pain; Angina pectoris; Additional info: Chest pain TECHNIQUE: Imaging protocol: Radiologic exam of the chest. Views: 1 view. COMPARISON: No relevant prior studies available. FINDINGS: Lungs: Unremarkable. No consolidation. Pleural spaces: Unremarkable. No pleural effusion. No pneumothorax. Heart/Mediastinum: Unremarkable. No cardiomegaly. Bones/joints: Unremarkable. XR/XR chest 1V portable [id number] IMPRESSION: No acute findings.
[2023-04-05] MEDS: losartan 50 mg Tablet PO (13:22)
[2023-04-05] MEDS: magnesium sulfate premix 2 GM/50 ML PIGGYBACK IV (13:23)
[2023-04-05] MEDS: sodium chloride 0.9% 1,000 ML 75 ML IV (13:23)
[2023-04-05 13:29] LABS: Hepatitis A Antibody IgM Non-Reactive (Nonreactive); Hepatitis B Core IgM Non-Reactive (Nonreactive); Hepatitis B Surface Antigen Non-Reactive (Nonreactive); Hepatitis C Virus Antibody Non-Reactive (Nonreactive)
--- NOTE | 2023-04-05 13:50 | PC.NURSE ---
Arrived from [facility], right angiogram site looks great, no oozing or bleeding. Patient aware of activity restriction. Nurse will continue to monitor.
[2023-04-05] MEDS: perflutren protein-a microsphr 0.22 mg/mL SDV 3 mL IV (16:06)
--- NOTE | 2023-04-05 17:01 | ECG_ITS ---
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 Measurements Intervals [place] Rate: 82 P: 1 [place]: 163 QRS: 17 QRSD: 87 T: 79 QT: 358 QTc: 420 Interpretive Statements SINUS RHYTHM NONSPECIFIC T-WAVE ABNORMALITY Compared to ECG 04/05/2023 11:03:58 T-wave abnormality now present Sinus tachycardia no longer present Ventricular premature complex(es) no longer present Electronically Signed On 04-05-2023 20:31:14 CDT by Karlie Azul M.D. [email or web address] ([email or web address]) [email or web address] va medical [id number]
[2023-04-05 17:02] LABS: Troponin 5 6HR 27.88 ng/L (0-15)
[2023-04-05 17:04] LABS: Troponin 5 6HR Delta -7.12 ng/L (0-12)
[2023-04-05 17:30] LABS: Glucose Point of Care 314 mg/dL (70-110)
[2023-04-05] MEDS: insulin lispro 100 unit/1 mL SUBCUT ×2 (17:36→22:14)
[2023-04-05] MEDS: prazosin 1 mg Capsule 4 MG PO (21:35)
[2023-04-05 22:00] LABS: Glucose Point of Care 231 mg/dL (70-110)
[2023-04-06] VITALS: BP 123/50; PULSE 95; RESP 14; TEMP 36.9; O2SAT 97
[2023-04-06 03:37] LABS: Basophils % 0.8 %; Eosinophils # 0.1 10^3/uL (0.0-0.8); Eosinophils % 2.3 %; Hemoglobin 12.1 g/dL (11.7-16.6); Lymphocytes # 1.9 10^3/uL (0.8-4.8); Lymphocytes % 40.4 %; Mean Corpuscular HGB Conc 30.3 g/dL (30.0-36.0); Mean Corpuscular Hemoglobin 23.7 pg (28.0-34.0); Mean Corpuscular Volume 78.4 fl (80-94); Mean Platelet Volume 10.4 fL (7.4-10.4); Monocytes # 0.6 10^3/uL (0.2-0.9); Monocytes % 12.1 %; Neutrophils # 2.11 10^3/uL (1.8-7.7); Neutrophils % 44.2 %; Nucleated Red Blood Cells % 0 %; Platelet Count 130 10^3/cmm (130-400); Red Cell Distribution Width 16.9 % (12.1-15.1); White Blood Count 4.8 10^3/uL (4.0-10.0)
[2023-04-06 03:54] LABS: Alanine Aminotransferase 171 U/L (0-41); Albumin Level 3.8 g/dL (3.5-5.2); Alkaline Phosphatase 124 U/L (40-130); Anion Gap 13.8 (5-19); Aspartate Amino Transferase 80 U/L (0-40); Blood Urea Nitrogen 12 mg/dL (6-20); Calcium 9.4 mg/dL (8.5-10.5); Carbon Dioxide 27 mmol/L (22-29); Chloride 100 mmol/L (98-107); Globulin 2.5 g/dL (1.3-4.6); Glomerular Filtration Rate 143.2 mL/min (90-130); Glucose 136 mg/dL (65-115); Magnesium 1.8 mg/dL (1.7-2.3); Osmolality Calculated 286 mOsm/kg (285-295); Potassium 3.8 mmol/L (3.5-5.1); Sodium 137 mmol/L (136-145); Total Bilirubin 0.6 mg/dL (0.15-1.2); Total Protein 6.3 g/dL (6.6-8.7)
[2023-04-06 04:00] VITALS: BP 124/76; PULSE 95; RESP 15; TEMP 36.7; O2SAT 96
[2023-04-06 04:08] LABS: Chol HDL Ratio 4.77 mg/dL (1.0-5.00); Cholesterol 124 mg/dL (0-200); HDL Cholesterol 26 mg/dL (60-100); LDL Cholesterol Calculated 40 mg/dL (50-129); LDL HDL Ratio 1.54 RATIO (0.00-3.22); Triglycerides 292 mg/dL (0-150)
[2023-04-06 04:57] VITALS: PULSE 87
[2023-04-06] MEDS: metoprolol succinate ER (24 HR) 100 mg Tablet PO (05:23)
[2023-04-06 07:00] LABS: Glucose Point of Care 152 mg/dL (70-110)
[2023-04-06 08:00] VITALS: BP 124/77; PULSE 82; RESP 17
[2023-04-06] MEDS: insulin lispro 100 unit/1 mL SUBCUT (08:09)
[2023-04-06 08:35] VITALS: BP 124/77
[2023-04-06] MEDS: aspirin 81 mg EC Tablet PO (08:35)
[2023-04-06] MEDS: spironolactone 25 mg Tablet PO (08:35)
[2023-04-06] MEDS: pantoprazole DR 40 mg Tablet PO (08:35)
[2023-04-06] MEDS: losartan 50 mg Tablet PO (08:35)
--- NOTE | 2023-04-06 08:50 | PM.PN ---
Subjective Subjective: Patient is feeling well. He has on and off mild discomfort. Echo shows normal LV systolic function. Coronary angiogram did not reveal any significant CAD. Vitals/I&O/Wt Last Vital Signs Temp 98.0 F 04/06/23 04:00 Pulse 87 04/06/23 04:57 Resp 15 04/06/23 04:00 BP 124/77 04/06/23 08:35 Pulse Ox 96 04/06/23 04:00 O2 Del Method Room Air 04/06/23 04:00 04/05/23 04/06/23 04/06/23 22:59 06:59 14:59 Intake Total 1731 / 1781.7 1000 / 2781.7 480 / 480 Output Total 600 / 600 Balance 1131 / 1181.7 1000 / 2181.7 480 / 480 Weight last 48 hrs Weight 280 lb Physical Exam Narrative: GENERAL: Patient is alert, awake and oriented x3. [] NECK: No jugular vein distension. [] HEENT: No cyanosis. No icterus. No pallor. [] HEART: Regular S1 and S2. Grade 2/6 systolic murmur LUNGS: Clear to auscultate bilaterally. [] ABDOMEN: Soft CENTRAL NERVOUS SYSTEM: Grossly nonfocal. [] EXTREMITIES: Lower extremities with no edema bilaterally. Data 04/06/23 03:18 04/06/23 03:18 A&P Assessment and plan (1) Hypertension: (2) Diabetes: (3) Hypertensive urgency: (4) Chest pain: Plan Patient's symptoms likely secondary to hypertensive urgency. Will uptitrate metoprolol to 50 mg daily. This will also help with suppression of PVCs. Losartan started. Blood pressure is better controlled now. Echo shows normal LV systolic function. Coronary angiogram did not reveal significant CAD. Thank you for involving us with care of this patient.Patient is stable to be discharged from cardiology standpoint. Please call with questions. Attestations Medical Necessity Statement*: Care not expected to cross Coding Level of Care Code Acute Code for [facility] Diagnoses Hypertension I10 Diabetes E11.9 Hypertensive urgency I16.0 Chest pain R07.9
--- NOTE | 2023-04-06 09:32 | P.DS_ITS ---
Discharge Providers Date of Admission: 04/05/23 12:38 Date of Discharge: April 06, 2023 Attending Provider at Admission: Jose Ortiz MD Attending Provider at Discharge: Tho Segura M.D Primary Care Provider: Alber Serrano MD Diagnoses at Discharge Discharge Diagnosis (1) Hypertension: Status: Acute (2) Diabetes: Status: Acute (3) Hypertensive urgency: Status: Acute (4) Chest pain: Status: Acute Reason for Visit Reason for Visit: chest pain/SOB Hospital Course Hospital Course Lenny is a 48-year-old white male who presented to the hospital with complaints of chest discomfort and diaphoresis. Blood sugar was not low. EKG demonstrated multiple PVCs. Cardiology was consulted and there was concern for acute coronary syndrome and he was taken to angiogram lab. Initial troponin was 35, with repeated 6 hours of 27. Magnesium slightly low, LFTs elevated, calcium slightly high. Blood pressure was markedly high. He was placed on a nitroglycerin drip, and heparin was initiated as well. At angiogram no flow- limiting stenosis was noted. TSH was normal. Magnesium was supplemented. Patient was hydrated. CT was done as he had some right facial numbness. With lowering of blood pressure this went away. Losartan was added to his blood pressure medicine regimen and other adjustments occurred such as discontinuing his hydrochlorothiazide. With angiogram showing no significant coronary disease, blood pressure becoming normal with treatment, no recurrence of facial numbness it was thought he could be discharged on April 06. At that time he reported no significant chest discomfort, only a little remaining soreness. I discussed with him risks and benefits of medication, reason for it, and he was given an opportunity to ask questions. He agreed with the plan. He will follow-up with cardiology. He also see his primary care provider in 3 to 5 days. He is to hold his sildenafil and testosterone until reviewed by cardiology. He will not take his metformin until April 08. Other medication changes as noted in his discharge orders which were discussed with the patient in detail. Physical Exam Narrative: General exam no distress Neck is supple Cardiovascular regular rate and rhythm Lungs clear Abdomen is soft Extremities no cyanosis clubbing or edema, right groin with no significant hematoma. Distal pulses intact. Discharge Data Studies Completed and Pending Completed Studies During Hospitalization Category Date Time Status CT head thrombolytic [id number] Stat Cat Scan 04/05/23 11:04 Completed XR chest 1V portable [id number] Routine Exams 04/05/23 12:51 Completed CV carotid duplex BI* [id number] Routine Ultrasound 04/05/23 12:46 Completed CV. 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 No evidence of intracranial hemorrhage or mass effect. 2. Intracranial vascular calcification. 3. Prior postoperative changes canal wall up RIGHT mastoidectomy. 4. No acute intracranial findings. Discussed with Daniel Taylor DO at 04/05/2023 11:27 AM. Chest X-Ray 04/05/23 12:51 IMPRESSION: No acute findings. Laboratory Results WBC 4.8 10^3/uL (4.0-10.0) 04/06/23 03:18 RBC 5.10 10^6/uL (4.1-5.3) 04/06/23 03:18 Hgb 12.1 g/dL (11.7-16.6) 04/06/23 03:18 Hct 40.0 % (42.0-52.0) L 04/06/23 03:18 MCV 78.4 fl (80-94) L 04/06/23 03:18 MCH 23.7 pg (28.0-34.0) L 04/06/23 03:18 MCHC 30.3 g/dL (30.0-36.0) 04/06/23 03:18 RDW 16.9 % (12.1-15.1) H 04/06/23 03:18 Plt Count 130 10^3/cmm (130-400) 04/06/23 03:18 MPV 10.4 fL (7.4-10.4) 04/06/23 03:18 Neut % (Auto) 44.2 % 04/06/23 03:18 Lymph % (Auto) 40.4 % 04/06/23 03:18 Alfalfa % (Auto) 12.1 % 04/06/23 03:18 Eos % (Auto) 2.3 % 04/06/23 03:18 Baso % (Auto) 0.8 % 04/06/23 03:18 Neut # (Auto) 2.11 10^3/uL (1.8-7.7) 04/06/23 03:18 Lymph # (Auto) 1.9 10^3/uL (0.8-4.8) 04/06/23 03:18 Alfalfa # (Auto) 0.6 10^3/uL (0.2-0.9) 04/06/23 03:18 Eos # (Auto) 0.1 10^3/uL (0.0-0.8) 04/06/23 03:18 Baso # (Auto) 0.0 10^3/uL (0.0-0.1) 04/06/23 03:18 Nucleated RBC % (auto) 0 % 04/06/23 03:18 Nucleated RBCs # 0.0 /100WBC 04/06/23 03:18 Sodium 137 mmol/L (136-145) 04/06/23 03:18 Potassium 3.8 mmol/L (3.5-5.1) 04/06/23 03:18 Chloride 100 mmol/L (98-107) 04/06/23 03:18 Carbon Dioxide 27 mmol/L (22-29) 04/06/23 03:18 Anion Gap 13.8 (5-19) 04/06/23 03:18 BUN 12 mg/dL (6-20) 04/06/23 03:18 Creatinine 0.6 mg/dL (0.7-1.2) L 04/06/23 03:18 GFR Calculation 143.2 mL/min (90-130) H 04/06/23 03:18 Glucose 136 mg/dL (65-115) H 04/06/23 03:18 POC Glucose 152 mg/dL (70-110) H 04/06/23 06:38 Calculated Osmolality 286 mOsm/kg (285-295) 04/06/23 03:18 Calcium 9.4 mg/dL (8.5-10.5) 04/06/23 03:18 Magnesium 1.8 mg/dL (1.7-2.3) 04/06/23 03:18 Total Bilirubin 0.6 mg/dL (0.15-1.2) 04/06/23 03:18 AST 80 U/L (0-40) H 04/06/23 03:18 ALT 171 U/L (0-41) H 04/06/23 03:18 Alkaline Phosphatase 124 U/L (40-130) 04/06/23 03:18 Troponin T Baseline 35 ng/L (0-15) H 04/05/23 10:40 Troponin T Hi Sens 6Hr 27.88 ng/L (0-15) H 04/05/23 16:24 Troponin T Hi Sens 6Hr Delta -7.12 ng/L (0-12) L 04/05/23 16:24 Total Protein 6.3 g/dL (6.6-8.7) L D 04/06/23 03:18 Albumin 3.8 g/dL (3.5-5.2) 04/06/23 03:18 Globulin 2.5 g/dL (1.3-4.6) 04/06/23 03:18 Triglycerides 292 mg/dL (0-150) H 04/06/23 03:18 Cholesterol 124 mg/dL (0-200) 04/06/23 03:18 LDL Cholesterol, Calc 40 mg/dL (50-129) L 04/06/23 03:18 HDL Cholesterol 26 mg/dL (60-100) L 04/06/23 03:18 LDL/HDL Ratio 1.54 RATIO (0.00-3.22) 04/06/23 03:18 Cholesterol/HDL Ratio 4.77 mg/dL (1.0-5.00) 04/06/23 03:18 TSH 1.39 uIU/mL (0.27-4.20) 04/05/23 10:40 Hepatitis A IgM Ab Non-reactive (Nonreactive) 04/05/23 10:40 Hep Bs Antigen Non-reactive (Nonreactive) 04/05/23 10:40 Hep B Core IgM Ab Non-reactive (Nonreactive) 04/05/23 10:40 Hepatitis C Antibody Non-reactive (Nonreactive) 04/05/23 10:40 Vitals Last Vital Signs Temp 98.0 F 04/06/23 04:00 Pulse 87 04/06/23 04:57 Resp 15 04/06/23 04:00 BP 124/77 04/06/23 08:35 Pulse Ox 96 04/06/23 04:00 O2 Del Method Room Air 04/06/23 04:00 Discharge Plan Discharge Patient Disposition: Home Condition: Stable Prescriptions: New losartan 50 mg Tablet 50 mg PO DAILY Qty: 30 0RF spironolactone 25 mg Tablet 25 mg PO DAILY Qty: 30 0RF metoprolol succinate 100 mg tablet extended release 24 hr 150 mg PO DAILY Qty: 45 0RF aspirin 81 mg Tablet,Delayed Release (Dr/Ec) 81 mg PO DAILY Qty: 30 0RF Continued metformin 1,000 mg tablet 1,000 mg PO BID omeprazole 20 mg capsule,delayed release(DR/EC) 20 mg PO QAM glipizide 5 mg tablet 5 mg PO BID prazosin 2 mg capsule 4 mg PO BEDTIME Jardiance 25 mg tablet 25 mg PO QAM Discontinued metoprolol succinate 200 mg Tablet Extended Release 24 Hr 100 mg PO QAM sildenafil 100 mg tablet 50 - 100 mg PO DAILY PRN (Reason: Erectile Dysfunction) spironolactone 25 mg Tablet 50 mg PO QAM hydrochlorothiazide 25 mg tablet 25 mg PO QAM testosterone cypionate 200 mg/mL oil 200 mg IM Q14D Discharge Orders: Discharge Order (Routine); Ordered 04/06/23 Ordered By: Jose Ortiz Referrals: Ifeoma Alvarez FNP [Nurse Practitioner] - 04/11/23 10:45 am Discharge Diet: Cardiac and Diabetic Discharge Activity: Increase activity as tolerated Patient Instructions: Angiogram (DC), Opioid Safety Activity Restrictions/Additional Instructions: Do not take your metformin until April 08. Follow-up with your primary care provider in 3 to 5 days. Have them recheck your liver tests as these were somewhat elevated during your hospital stay. Stop alcohol Note that your hydrochlorothiazide has been discontinued. Aldactone reduced to 25 mg daily. Metoprolol increased to 150 mg daily. Losartan started at 50 mg daily. Hold your testosterone, sildenafil until after review to cardiology follow-up Return for any concerns Discharge Attestations Time Spent in Discharge Care*: greater than 30 min Quality Metrics Clinical Quality Measures [ No reported AMI, CVA or VTE this stay] Coding Level of Care Code 75316 Total time (in minutes) for Discharge: 37 Diagnoses Hypertension I10 Diabetes E11.9 Hypertensive urgency I16.0 Chest pain R07.9
[2023-04-06 10:10] VITALS: BP 124/77; PULSE 82; RESP 19; TEMP 36.6; O2SAT 95
== END 2023-04-06 10:25 | disposition home or self-care (01) ==
LOC: ER 10:57 → CCL 11:32 → CSU 15:49
PROVIDERS: Admitting Provider Internal Medicine; Emergency Provider Family Medicine; PCP Pediatrics; Visit Provider Internal Medicine
DX: I20.0 Unstable angina (principal); I10 Essential (primary) hypertension; E11.9 Type 2 diabetes mellitus without complications; Z82.49 Family history of ischemic heart disease and other diseases of the circulatory system; K21.9 Gastro-esophageal reflux disease without esophagitis; F17.210 Nicotine dependence, cigarettes, uncomplicated; R61 Generalized hyperhidrosis; Z79.84 Long term (current) use of oral hypoglycemic drugs; R20.0 Anesthesia of skin; R94.31 Abnormal electrocardiogram [ECG] [EKG]; I08.1 Rheumatic disorders of both mitral and tricuspid valves; E83.52 Hypercalcemia; E83.42 Hypomagnesemia; G47.33 Obstructive sleep apnea (adult) (pediatric); Z99.89 Dependence on other enabling machines and devices; I16.1 Hypertensive emergency
CPT/HCPCS: 36415; 36416; 70450; 71045; 80053; 80061; 80074; 82962; 83735; 84443; 84484; 85025; 93005; 93458; 93880; 96365; 96366; 96367; 96372; 96375; 96376; 99152; 99153; 99291; C1760; C1769; C1887; C1894; C8929; G0378; J0360; J1644; J1815; J2250; J2270; J3010; J3475; J3490; J7030; Q9956; Q9967

== ENCOUNTER → 2023-04-11 10:48 | Outpatient (BNVA) | payer OTHER, SELFPAY | PROVIDERS: PCP Pediatrics; Visit Provider Nurse Practitioner Family | DX: R07.9 Chest pain, unspecified (principal); I10 Essential (primary) hypertension; F17.220 Nicotine dependence, chewing tobacco, uncomplicated | CPT/HCPCS: 36415; 80048; 99214 ==

== ENCOUNTER 2023-09-22 12:56 | Emergency (ER) | payer OTHER, SELFPAY ==
[2023-09-22 12:57] VITALS: BP 156/104; PULSE 80; RESP 17; TEMP 36.5; O2SAT 95; BMI 32.9
--- NOTE | 2023-09-22 14:09 | CTR_ITS ---
PROCEDURE INFORMATION: Exam: CT Abdomen And Pelvis With Contrast Exam date and time: 09/22/2023 4:50 PM Age: 48 years old Clinical indication: Abdominal pain; Localized; Right TECHNIQUE: Imaging protocol: Computed tomography of the abdomen and pelvis with contrast. Axial, coronal and sagittal reformatted images were created and reviewed. Radiation optimization: All CT scans at this facility use at least one of these dose optimization techniques: automated exposure control; mA and/or kV adjustment per patient size (includes targeted exams where dose is matched to clinical indication); or iterative reconstruction. Contrast material: OMNI 350; Contrast volume: 100 ml; Contrast route: INTRAVENOUS (IV); COMPARISON: CR XR chest 1V portable [id number] 04/05/2023 1:00 PM RADIATION DOSE METRICS: Total DLP (mGy-cm): 1260 FINDINGS: Lungs: Rznsb-cwgaaha-mfff-left basilar reticulonodular infiltrates, compatible with small airway disease/aspiration. Liver: Unremarkable. Gallbladder and bile ducts: No radiodense gallstones. No biliary ductal dilatation. Pancreas: Unremarkable. Spleen: Unremarkable. Adrenal glands: Normal. No mass. Kidneys and ureters: Bilateral renal cysts, measuring up to 1.3 cm on the right (no follow-up is indicated based on the imaging appearance). Nonobstructing right renal calculi. No hydronephrosis. Stomach and bowel: Colonic diverticulosis without evidence of diverticulitis. No obstruction. No bowel wall thickening. No pneumatosis. Appendix: Normal. Intraperitoneal space: No free fluid. No organized fluid collection. No free air. Vasculature: Minimal atherosclerotic disease. No aneurysm or dissection. Lymph nodes: No pathologically enlarged lymph nodes. Urinary bladder: Unremarkable as visualized. Reproductive: Unremarkable. Bones/joints: No acute osseous abnormality. Degenerative changes. Soft tissues: Unremarkable. CT/CT abdomen pelvis w con* [id number]: 1[address] No CT evidence of acute intra-abdominal or pelvic pathology. 2. Ijahs-xyxmslf-jkjs-left basilar reticulonodular infiltrates, compatible with small airway disease/aspiration. Infection can not be excluded. 3. Additional findings, as above. COMMENTS: Consistent with the [employer]'s Incidental Findings Committee white paper (J Am Rm Radiol 2018): Any incidental renal lesion less than 1 cm or classified as too small to characterize, or any incidental cystic renal lesion characterized as simple-appearing, is likely benign. No follow-up imaging is recommended for these lesions per consensus recommendations based on imaging criteria.
[2023-09-22 15:22] LABS: Basophils % 0.6 %; Eosinophils # 0.1 10^3/uL (0.0-0.8); Eosinophils % 2.3 %; Hematocrit 43.3 % (37-53); Lymphocytes # 1.9 10^3/uL (0.8-4.8); Lymphocytes % 38.7 %; Mean Corpuscular Hemoglobin 23.3 pg (27-33); Mean Corpuscular Volume 77.5 fl (82-101); Mean Platelet Volume 10.9 fL (7.4-10.4); Monocytes # 0.6 10^3/uL (0.2-0.9); Monocytes % 13.3 %; Neutrophils # 2.16 10^3/uL (1.8-7.7); Neutrophils % 44.9 %; Nucleated Red Blood Cells % 0 %; Platelet Count 150 10^3/cmm (157-399); Red Blood Count 5.59 10^6/uL (3.85-5.65); Red Cell Distribution Width 16.2 % (12.1-15.1); White Blood Count 4.81 10^3/uL (3.29-11.43)
[2023-09-22 15:44] LABS: Alanine Aminotransferase 80 U/L (0-41); Alkaline Phosphatase 140 U/L (40-130); Anion Gap 17.2 (5-19); Aspartate Amino Transferase 61 U/L (0-40); Blood Urea Nitrogen 15 mg/dL (6-20); Calcium 9.7 mg/dL (8.5-10.5); Carbon Dioxide 25 mmol/L (22-29); Chloride 98 mmol/L (98-107); Globulin 3.7 g/dL (1.3-4.6); Glomerular Filtration Rate 102.7 mL/min (90-130); Glucose 153 mg/dL (65-115); Lipase 58 U/L (13-60); Osmolality Calculated 286 mOsm/kg (285-295); Potassium 4.2 mmol/L (3.5-5.1); Sodium 136 mmol/L (136-145); Total Bilirubin 0.5 mg/dL (0.15-1.2); Total Protein 7.7 g/dL (6.6-8.7)
[2023-09-22 16:18] VITALS: BP 134/87; PULSE 78; O2SAT 98
[2023-09-22] MEDS: iohexol 350 mg/mL 500 mL Btl (per mL) IV (16:43)
--- NOTE | 2023-09-22 16:57 | PC.PHAR ---
Addendum entered by Danette Joiner 09/22/23 17:03: PT IS VA AND HAD [facility] FAX CURRENT MED LIST. MANY NEW MEDS ADDED INCLUDING PSYCH MEDS NOT ON THE LIST. I PHONED , WHO READ THE INFORMATION OFF THE RX BOTTLES IN THE CABINET AT HOME. Original Note: 09/22/23- PT STATES IS TAKING NEW PSYCH MED RISPERIDONE. WE ARE UNABLE TO VERIFY WITH , [place], OR LIZY ESCOTO. DID NOT ADD TO MED LIST.
[2023-09-22 17:00] VITALS: BP 152/74; PULSE 74; O2SAT 98
--- NOTE | 2023-09-22 17:20 | W.ED.ABDPA2 ---
HPI - Abdominal Pain General: Chief Complaint: Abdominal Pain Stated Complaint: right abd pain Time Seen by Provider: 09/22/23 14:12 History of Present Illness: 48-year-old male presents emergency department with complaints of right-sided abdominal pain that radiates down to his groin area. He states he feels like his abdomen is also been distended. He states his current pain is a dull vague pain that is a 7 out of 10. He denies nausea, vomiting, fevers chills night sweats or diarrhea. He denies hematemesis or hematochezia. Associated Symptoms: Reports bloating; Denies constipation, diarrhea, excessive flatus, hematochezia and melena Review of Systems General: Reports: 10 or more systems reviewed and unremarkable except in HPI and below GI: Reports: abdominal pain and bloating; Denies: diarrhea, constipation, excessive flatus, hematochezia or melena [facility] ED PFSH: Medical History Diabetes GERD (gastroesophageal reflux disease) Hypertension Surgical History History of elbow surgery History of foot surgery History of knee surgery History of mastoidectomy Family History Other CAD (coronary artery disease) Social History Smoking and tobacco/nicotine status: current some day tobacco/nicotine user cigarettes and smokeless tobacco Alcohol intake: current Physical Exam Narrative: EXAM NARRATIVE: Constitutional: the patient appears well nourished and of normal development. Vital signs as documented. No acute distress at present. Alert and oriented-to person, place, time and situation. Head, eyes, ears, nose, mouth, throat: Normocephalic, atraumatic. Pupils-equal, round, reactive to light. No scleral icterus. Normal-appearing external ears. Normal appearing nasal turbinates, no drainage. No obvious oral lesions, posterior oropharynx without erythema or exudates. Neck: Supple, trachea is midline, no lymphadenopathy, no jugular venous distension, thyromegaly, or carotid bruits. Carotid upstrokes are brisk bilaterally. Lungs: clear to auscultation to all lung bello. Symmetrical rise and fall of chest, no obvious signs of increased work of breathing at present. Cardiac: Regular rate and rhythm, positive S1, S2. No murmurs, rubs or gallops that I can appreciate Abdomen: Soft, non-tender to palpation, normal active bowel sounds to all quadrants. No palpable masses, no organomegaly and abdominal bruits. Extremities: 2+ pulses in the upper extremities that are equal bilaterally, 2+ pulses in the lower extremities that are equal bilaterally. Non-edematous. Moves all extremities well, sensation to all extremities are noted. Skin: Warm, dry, intact. Course Vital Signs: Vital signs: Vital Signs Temperature 97.7 F 09/22/23 12:57 Pulse Rate 81 09/22/23 17:30 Respiratory Rate 17 09/22/23 12:57 Blood Pressure 140/77 09/22/23 17:30 Pulse Oximetry 96 09/22/23 17:30 Oxygen Delivery Me thod Room Air 09/22/23 17:30 MDM - Abdominal Pain Medical Decision Making Physical exam completed and documented, I will obtain a CBC and CMP as well as a lipase and a CT scan of the abdomen pelvis with IV contrast for additional evaluation treatment and care. Medical Records I reviewed the patient's medical records. Lab Data I reviewed the patient's lab results. 09/22/23 14:35 09/22/23 14:35 Labs/Radiology: Radiology Impressions Abdomen/Pelvis CT 09/22/23 14:09 IMPRESSION: 1. No CT evidence of acute intra-abdominal or pelvic pathology. 2. Ulsfg-[id number]-qjap-left basilar reticulonodular infiltrates, compatible with small airway disease/aspiration. Infection can not be excluded. 3. Additional findings, as above. COMMENTS: Consistent with the [employer]'s Incidental Findings Committee white paper (J Am Rm Radiol 2018): Any incidental renal lesion less than 1 cm or classified as too small to characterize, or any incidental cystic renal lesion characterized as simple-appearing, is likely benign. No follow-up imaging is recommended for these lesions per consensus recommendations based on imaging criteria. Laboratory Results WBC 4.81 10^3/uL (3.29-11.43) 09/22/23 14:35 RBC 5.59 10^6/uL (3.85-5.65) 09/22/23 14:35 Hgb 13.00 g/dL (11.27-16.99) 09/22/23 14:35 Hct 43.3 % (37-53) 09/22/23 14:35 MCV 77.5 fl (82-101) L 09/22/23 14:35 MCH 23.3 pg (27-33) L 09/22/23 14:35 MCHC 30.0 g/dL (30-55) 09/22/23 14:35 RDW 16.2 % (12.1-15.1) H 09/22/23 14:35 Plt Count 150 10^3/cmm (157-399) L 09/22/23 14:35 MPV 10.9 fL (7.4-10.4) H 09/22/23 14:35 Neut % (Auto) 44.9 % 09/22/23 14:35 Lymph % (Auto) 38.7 % 09/22/23 14:35 [place] % (Auto) 13.3 % 09/22/23 14:35 Eos % (Auto) 2.3 % 09/22/23 14:35 Baso % (Auto) 0.6 % 09/22/23 14:35 Neut # (Auto) 2.16 10^3/uL (1.8-7.7) 09/22/23 14:35 Lymph # (Auto) 1.9 10^3/uL (0.8-4.8) 09/22/23 14:35 [place] # (Auto) 0.6 10^3/uL (0.2-0.9) 09/22/23 14:35 Eos # (Auto) 0.1 10^3/uL (0.0-0.8) 09/22/23 14:35 Baso # (Auto) 0.0 10^3/uL (0.0-0.1) 09/22/23 14:35 Nucleated RBC % (auto) 0 % 09/22/23 14:35 Nucleated RBCs # 0.0 /100WBC 09/22/23 14:35 Sodium 136 mmol/L (136-145) 09/22/23 14:35 Potassium 4.2 mmol/L (3.5-5.1) 09/22/23 14:35 Chloride 98 mmol/L (98-107) 09/22/23 14:35 Carbon Dioxide 25 mmol/L (22-29) 09/22/23 14:35 Anion Gap 17.2 (5-19) 09/22/23 14:35 BUN 15 mg/dL (6-20) 09/22/23 14:35 Creatinine 0.8 mg/dL (0.7-1.2) 09/22/23 14:35 GFR Calculation 102.7 mL/min (90-130) 09/22/23 14:35 Glucose 153 mg/dL (65-115) H 09/22/23 14:35 Calculated Osmolality 286 mOsm/kg (285-295) 09/22/23 14:35 Calcium 9.7 mg/dL (8.5-10.5) 09/22/23 14:35 Total Bilirubin 0.5 mg/dL (0.15-1.2) 09/22/23 14:35 AST 61 U/L (0-40) H 09/22/23 14:35 ALT 80 U/L (0-41) H 09/22/23 14:35 Alkaline Phosphatase 140 U/L (40-130) H 09/22/23 14:35 Total Protein 7.7 g/dL (6.6-8.7) 09/22/23 14:35 Albumin 4.0 g/dL (3.5-5.2) 09/22/23 14:35 Globulin 3.7 g/dL (1.3-4.6) 09/22/23 14:35 Lipase 58 U/L (13-60) 09/22/23 14:35 Urine Color Yellow (Yellow) 09/22/23 17:30 Urine Appearance Clear (CLEAR) 09/22/23 17:30 Urine pH 5 (5-7) 09/22/23 17:30 Ur Specific [place] 1.015 (1.005-1.030) 09/22/23 17:30 Urine Protein Neg (Negative) 09/22/23 17:30 Urine Glucose (UA) 4+ (Normal) H 09/22/23 17:30 Urine Ketones 1+ (Negative) H 09/22/23 17:30 Urine Blood Neg (Negative) 09/22/23 17:30 Urine Nitrate Negative (Negative) 09/22/23 17:30 Urine Bilirubin Neg (Negative) 09/22/23 17:30 Urine Urobilinogen 1 mg/dL (Negative) H 09/22/23 17:30 Ur Leukocyte Esterase Negative (Negative) 09/22/23 17:30 Urine Opiates Screen Negative ng/mL (Negative) 09/22/23 17:30 Ur Barbiturates Screen Negative ng/mL (Negative) 09/22/23 17:30 Ur Phencyclidine Scrn Negative ng/mL (Negative) 09/22/23 17:30 Ur Amphetamines Screen Negative ng/mL (Negative) 09/22/23 17:30 U Benzodiazepines Scrn Negative ng/mL (Negative) 09/22/23 17:30 Urine Cocaine Screen Negative ng/mL (Negative) 09/22/23 17:30 U Marijuana (THC) Screen Positive ng/mL (Negative) H 09/22/23 17:30 All radiology interpretation(s) finalized by discharge Discharge Plan Discharge Patient Disposition: Home Clinical Impression: Musculoskeletal strain, Diverticulosis Abdominal pain Qualifiers: Abdominal location: right lower quadrant Qualified Code(s): R10.31 - Right lower quadrant pain Condition: Stable Prescriptions: New Senna-S 8.6-50 mg tablet 2 tab-cap PO BID Qty: 60 0RF naproxen 500 mg tablet 500 mg PO Q12H PRN (Reason: pain) Qty: 20 0RF No Action atorvastatin [Lipitor] 10 mg tablet 10 mg PO DAILY Qty: 90 3RF losartan 100 mg tablet 100 mg PO DAILY Qty: 90 3RF spironolactone 25 mg tablet 25 mg PO DAILY Qty: 90 3RF metformin 1,000 mg tablet 1,000 mg PO BID omeprazole 20 mg capsule,delayed release(DR/EC) 20 mg PO QAM glipizide 5 mg tablet 5 mg PO BID prazosin 2 mg capsule 4 mg PO BEDTIME Jardiance 25 mg tablet 25 mg PO QAM atorvastatin 80 mg Tablet 40 mg PO DAILY cetirizine 10 mg Tablet 10 mg PO DAILY PRN (Reason: ALLERGIES) sildenafil 100 mg Tablet See Rx Instructions .ROUTE .COMPLEX Rx Instructions: TAKE 1 TABLET BY MOUTH 1 HOUR PRIOR TO SEXUAL ACTIVITY disulfiram 250 mg tablet 250 mg PO DAILY trazodone 100 mg tablet 100 mg PO BEDTIME amlodipine 10 mg tablet 10 mg PO DAILY testosterone cypionate 200 mg/mL oil See Rx Instructions .ROUTE .COMPLEX Rx Instructions: INJECT 200MG/ML DEEP IM EVERY 2 WEEKS FOR LOW TESTOSTERONE Flonase 50 mcg/actuation [place],Suspension 1 spray INTRANASAL DAILY PRN (Reason: ALLERGIES) Rx Instructions: administer into each nostril BuSpar 15 mg Tablet 15 mg PO TID aripiprazole 10 mg tablet 5 mg PO DAILY metoprolol succinate 100 mg tablet extended release 24 hr 200 mg PO DAILY FeroSul 325 mg (65 mg iron) tablet 325 mg PO DAILY Discharge Orders: Discharge ED (Routine); Ordered 09/22/23 Ordered By: Gerhard Lofton Referrals: Balbina Segura MD [Primary Care Provider] - Discharge Diet: Advance as tolerated Discharge Activity: Resume usual activity Patient Instructions: Abdominal Pain (ED), Opioid Safety, Pain Management Activity Restrictions/Additional Instructions: Activity Restrictions/Additional Instructions: Thank you for choosing [facility] for your healthcare needs today. Please realize that you were seen in the Emergency Department and that we are providing you with an emergency medical screening exam and this may not be a complete and all inclusive of all the testing and or medical work-up that you may need to determine your ailment or severity of your illness. It is very important that you follow-up as instructed with your Primary care provider or Specialist for additional evaluation and to discuss your medical treatment plan. You may return to the Emergency Department should you have concerns or if your condition changes or worsens in any way. Coding Level of Care Code ED Radial Saw Operator for Jigar Vallecillo
[2023-09-22 17:30] VITALS: BP 140/77; PULSE 81; O2SAT 96
[2023-09-22 17:48] LABS: Add Urine Microscopic? NO; Charge for UA Resulting for Rev
[2023-09-22 18:01] LABS: Bilirubin Urine Neg (Negative); Blood Urine Neg (Negative); Glucose Urine UA 4+ (Normal); Ketones Urine 1+ (Negative); Leukocyte Esterase Urine Negative (Negative); Nitrate Urine Negative (Negative); Protein Urine Neg (Negative); Specific Gravity, Urine 1.015 (1.005-1.030); Urine Appearance Clear (CLEAR); Urine Color Yellow (Yellow); Urobilinogen Urine 1 mg/dL (Negative); pH Urine 5 (5-7)
[2023-09-22 18:10] LABS: Amphetamines Screen Urine Negative (Negative); Barbiturates Screen Urine Negative (Negative); Benzodiazepines Screen Urine Negative (Negative); Cocaine Screen Urine Negative (Negative); Opiate Screen Urine Negative (Negative); PCP Screen Urine Negative (Negative); THC Screen Urine Positive (Negative)
== END 2023-09-22 18:15 | disposition home or self-care (01) ==
PROVIDERS: Emergency Provider Internal Medicine; PCP Family Medicine
DX: K57.90 Diverticulosis of intestine, part unspecified, without perforation or abscess without bleeding (principal); R10.31 Right lower quadrant pain; S39.011A Strain of muscle, fascia and tendon of abdomen, initial encounter; Z79.84 Long term (current) use of oral hypoglycemic drugs; E11.9 Type 2 diabetes mellitus without complications; I10 Essential (primary) hypertension; Z72.0 Tobacco use; X58.XXXA Exposure to other specified factors, initial encounter
CPT/HCPCS: 36415; 74177; 80053; 80306; 81003; 83690; 85025; 99285; Q9967

== ENCOUNTER → 2023-10-11 10:11 | Outpatient (BNVA) | payer OTHER, SELFPAY | PROVIDERS: PCP Family Medicine; Referring Provider Family Medicine; Visit Provider Surgery | DX: Z12.11 Encounter for screening for malignant neoplasm of colon (principal) | CPT/HCPCS: 99203 ==

== ENCOUNTER 2024-01-05 10:33 | Day surgery (SDC) | payer OTHER, SELFPAY ==
[2024-01-05 10:53] VITALS: BP 168/92; PULSE 73; RESP 14; TEMP 36.4; O2SAT 99; BMI 32.5
[2024-01-05] MEDS: sodium chloride 0.9% 1,000 ML 30 ML IV (11:05)
[2024-01-05 11:12] LABS: Glucose Point of Care 113 mg/dL (70-110)
--- NOTE | 2024-01-05 11:13 | W.PM.OPSFHP ---
Same Day Surgery H&P Indication for Procedure/HPI DATE OF PROCEDURE: January 05, 2024 CHIEF COMPLAINT/INDICATIONFOR SURGICAL PROCEDURE: enconter for screening colonoscopy PREOP DIAGNOSIS: encounter for screening colonoscopy PLANNED PROCEDURE: Operation Date: 01/05/24 11:55 Proposed Procedures p 29876 colon G0105 screen colon H risk Z12.11(Not Applicable) - Jens Huffman MD Medications/Allergies* Home Medications Medication Instructions Recorded Confirmed Type empagliflozin 25 mg tablet 25 mg PO QAM 04/05/23 01/05/24 History (Jardiance) glipizide 5 mg tablet 5 mg PO BID 04/05/23 01/05/24 History metformin 1,000 mg tablet 1,000 mg PO BID 04/05/23 01/05/24 History omeprazole 20 mg capsule,delayed 20 mg PO QAM 04/05/23 01/05/24 History release prazosin 2 mg capsule 4 mg PO BEDTIME 04/05/23 01/05/24 History amlodipine 10 mg tablet 10 mg PO DAILY 09/22/23 01/05/24 History aripiprazole 10 mg tablet (Abilify) 5 mg PO DAILY 09/22/23 01/05/24 History atorvastatin 80 mg tablet 40 mg PO DAILY 09/22/23 01/05/24 History buspirone 15 mg tablet 15 mg PO TID 09/22/23 01/05/24 History cetirizine 10 mg tablet 10 mg PO DAILY PRN ALLERGIES 09/22/23 01/05/24 History disulfiram 250 mg tablet 250 mg PO DAILY 09/22/23 01/05/24 History ferrous sulfate 325 mg (65 mg 325 mg PO DAILY 09/22/23 01/05/24 History iron) tablet (FeroSul) fluticasone propionate 50 1 spray intranasal DAILY PRN 09/22/23 01/05/24 History mcg/actuation nasal ALLERGIES spray,suspension metoprolol succinate 100 mg 200 mg PO DAILY 09/22/23 01/05/24 History tablet,extended release 24 hr sildenafil 100 mg tablet 100 mg PO PRN PRN Sexual Activity 09/22/23 01/05/24 History testosterone cypionate 200 mg/mL See Rx Instructions .Route .COMPLEX 09/22/23 01/05/24 History intramuscular oil trazodone 100 mg tablet 100 mg PO BEDTIME PRN Sleep 09/22/23 01/05/24 History Allergies/Adverse Reactions Allergy/AdvReac Type Severity Reaction Status Date / Time gabapentin Allergy Unknown Verified 01/05/24 10:51 nifedipine Allergy ALGY-Swell Verified 01/05/24 10:51 Lip/Tongue/Throat Current Medications: Generic Name Dose Route Start Last Admin Trade Name Freq PRN Reason Stop Dose Admin Sodium Chloride 1,000 mls @ 30 mls/hr 01/05/24 07:15 01/05/24 11:05 Sodium Chloride 0.9% IV 01/06/24 07:14 30 mls/hr .Q24H MIRIAM Administration Pertinent History/Comorbid Conditions* Medical History (Updated 10/11/23 @ 17:37 by Jens Huffman MD) GERD (gastroesophageal reflux disease) Hypertension Diabetes Surgical History (Updated 04/05/23 @ 12:48 by Jose Ortiz MD) History of mastoidectomy History of elbow surgery History of knee surgery History of foot surgery Family History (Updated 04/05/23 @ 12:13 by Tho Segura M.D) CAD (coronary artery disease) Social History Smoking and tobacco/nicotine status: current some day tobacco/nicotine user cigarettes and smokeless tobacco Alcohol intake: current Pertinent Exam Findings alert, oriented x 3, clear to auscultation bilaterally, regular rate & rhythm and operative site marked Recommendations Surgery/Procedure today Coding Level of Care Code Acute Code for Chg Fwd
--- NOTE | 2024-01-05 11:22 | ANES.PREANE2 ---
Pre-Anesthetic Assessment Height/Weight: Height 1.98 m Weight 127.913 kg Temp Pulse Resp BP Pulse Ox O2 Del Method 97.5 F L 73 14 168/92 99 Room Air 01/05/24 10:53 01/05/24 10:53 01/05/24 10:53 01/05/24 10:53 01/05/24 10:53 01/05/24 10:53 Preop Diagnosis: encounter for screening colonoscopy Operation Date: 01/05/24 11:55 Proposed Procedures p 82025 colon G0105 screen colon H risk Z12.11(Not Applicable) - Jens Huffman MD Last intake: Intake Last Liquid Date 01/04/24 Last Liquid Time 20:00 Last Solid Date 01/03/24 Last Solid Time 19:00 CV/HEM Hypertension 04/05/23 Procedure(s): CV. echo wo/w contrast 34633 CONCLUSIONS ?LV systolic function is normal with EF of 60 to 65%. ?Grade 1 diastolic dysfunction. ?Trace mitral regurgitation. ?Mild tricuspid regurgitation. ?No comparison studies are available None reported Hepatic None reported GI Gastroesophageal Reflux Disease (well controlled with medication) Metabolic Diabetes Mellitus Neuropsych None reported Anesthetic Plan ASA status: 3 Anesthesia: Anesthesia Evaluation and MAC Risk of > 500 ml blood loss (7ml/kg in children): No Medications/Allergies Home Medications Medication Instructions Recorded Confirmed Last Taken Type empagliflozin 25 mg tablet 25 mg PO QAM 04/05/23 01/05/24 01/04/24 History (Jardiance) glipizide 5 mg tablet 5 mg PO BID 04/05/23 01/05/24 01/04/24 History metformin 1,000 mg tablet 1,000 mg PO BID 04/05/23 01/05/24 01/04/24 History omeprazole 20 mg capsule,delayed 20 mg PO QAM 04/05/23 01/05/24 01/04/24 History release prazosin 2 mg capsule 4 mg PO BEDTIME 04/05/23 01/05/24 01/04/24 History losartan 100 mg tablet 100 mg PO DAILY #90 tabs 05/03/23 01/05/24 01/04/24 Rx spironolactone 25 mg tablet 25 mg PO DAILY #90 tabs 05/03/23 01/05/24 01/04/24 Rx amlodipine 10 mg tablet 10 mg PO DAILY 09/22/23 01/05/24 01/05/24 06:00 History aripiprazole 10 mg tablet (Abilify) 5 mg PO DAILY 09/22/23 01/05/24 01/04/24 History atorvastatin 80 mg tablet 40 mg PO DAILY 09/22/23 01/05/24 01/04/24 History buspirone 15 mg tablet 15 mg PO TID 09/22/23 01/05/24 01/04/24 History cetirizine 10 mg tablet 10 mg PO DAILY PRN ALLERGIES 09/22/23 01/05/24 1 Year Ago History ~01/04/23 disulfiram 250 mg tablet 250 mg PO DAILY 09/22/23 01/05/24 01/04/24 History ferrous sulfate 325 mg (65 mg 325 mg PO DAILY 09/22/23 01/05/24 01/04/24 History iron) tablet (FeroSul) fluticasone propionate 50 1 spray intranasal DAILY PRN 09/22/23 01/05/24 01/02/24 History mcg/actuation nasal ALLERGIES spray,suspension metoprolol succinate 100 mg 200 mg PO DAILY 09/22/23 01/05/24 01/05/24 06:00 History tablet,extended release 24 hr sildenafil 100 mg tablet 100 mg PO PRN PRN Sexual Activity 09/22/23 01/05/24 1 Week Ago History ~12/29/23 testosterone cypionate 200 mg/mL See Rx Instructions .Route .COMPLEX 09/22/23 01/05/24 01/04/24 History intramuscular oil trazodone 100 mg tablet 100 mg PO BEDTIME PRN Sleep 09/22/23 01/05/24 1 Week Ago History ~12/29/23 Allergies Allergy/AdvReac Type Severity Reaction Status Date / Time gabapentin Allergy Unknown Verified 01/05/24 10:51 nifedipine Allergy ALGY-Swell Verified 01/05/24 10:51 Lip/Tongue/Throat Current Medications Generic Name Dose Route Start Last Admin Trade Name Freq PRN Reason Stop Dose Admin Sodium Chloride 1,000 mls @ 30 mls/hr 01/05/24 07:15 01/05/24 11:05 Sodium Chloride 0.9% IV 01/06/24 07:14 30 mls/hr .Q24H MIRIAM Administration PFSH Anesthesia Medical History GERD (gastroesophageal reflux disease) Hypertension Diabetes Surgical History History of mastoidectomy History of elbow surgery History of knee surgery History of foot surgery Family History Other CAD (coronary artery disease) Social History Smoking and tobacco/nicotine status: current some day tobacco/nicotine user cigarettes and smokeless tobacco Alcohol intake: current Data Anesthesia Cardiac Studies: Echocardiogram 04/05/23
[2024-01-05 13:23] VITALS: BP 100/76; PULSE 89; RESP 18; TEMP 36.7; O2SAT 97
[2024-01-05 13:51] VITALS: BP 113/87; PULSE 70; RESP 20; O2SAT 92
== END 2024-01-05 14:02 | disposition home or self-care (01) ==
PROVIDERS: PCP Family Medicine; Visit Provider Surgery
PROC: 0DJD8ZZ Inspection of Lower Intestinal Tract, Via Natural or Artificial Opening Endoscopic (ICD-10-PCS; CPT 45378; principal; 2024-01-05 11:55)
DX: Z12.11 Encounter for screening for malignant neoplasm of colon (principal); K21.9 Gastro-esophageal reflux disease without esophagitis; I10 Essential (primary) hypertension; E11.9 Type 2 diabetes mellitus without complications; F17.210 Nicotine dependence, cigarettes, uncomplicated
CPT/HCPCS: 36416; 45378; 82962; J2250; J2704; J3490; J7030

== ENCOUNTER 2024-01-31 06:45 | Emergency (ER) | payer OTHER, MEDICARE, SELFPAY ==
[2024-01-31 06:50] VITALS: BP 180/108; PULSE 107; RESP 18; TEMP 37.6; O2SAT 94; BMI 32.3
--- NOTE | 2024-01-31 06:50 | XR_ITS ---
WS: [id number] PORTABLE CHEST HISTORY: Chest pain COMPARISON: 04/05/2023 Lungs are clear and well expanded. No pleural effusion or pneumothorax. Cardiac size: Normal. Mediastinum/Aorta: Normal mediastinum. No osseous abnormality seen. XR/XR chest 1V portable [id number] IMPRESSION: Unremarkable portable chest.
--- NOTE | 2024-01-31 06:54 | ECG_ITS ---
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 Measurements Intervals [place] Rate: 106 P: 54 TX: 156 QRS: 36 QRSD: 90 T: 89 QT: 349 QTc: 463 Interpretive Statements SINUS TACHYCARDIA WITH FREQUENT VENTRICULAR PREMATURE COMPLEXES MINIMAL ST DEPRESSION [0.025+ mV ST DEPRESSION] Compared to ECG 04/05/2023 17:01:10 Ventricular premature complex(es) now present ST (T wave) deviation now present Sinus rhythm no longer present T-wave abnormality no longer present Electronically Signed On 01-31-2024 16:50:08 CDT by Tho Segura M.D. [email or web address]
--- NOTE | 2024-01-31 06:58 | ED_ITS ---
HPI - Chest Pain 2 General: Chief Complaint: Chest Pain Stated Complaint: Chest Pain Time Seen by Provider: 01/31/24 06:50 Source: patient Mode of arrival: ambulatory History of Present Illness: 49-year-old male presents emergency room with complaint of chest pain. Patient is diabetic with a history of hypertension and being 1/2 pack a day smoker but does not have any known history of coronary artery disease. Patient states for last 3 days had increasing cough and fever cough been nonproductive. No hemoptysis. He is developed some accompanying chest tightness with it that began after the fever and cough. He has a history of hypertension and has not taken his hypertensive medications because when he has since this began at times he feels like his blood pressure is bottoming out . Patient had evaluation for chest pain April 2023 at that time and an angiogram that he reports was negative, report reviewed as found on the chart. EF was normal and left ventriculogram a recommended risk factor modifications. MD complaint: chest pain Onset (ago): day(s) (3) Timing of current episode: episodic Onset: during rest and during exertion Pain location: left chest Pain radiation: none Quality: tightness Relieving factors: rest Exacerbating factors: exertion and other (Cough) Associated symptoms: Deny abdominal pain, diaphoresis, dyspnea, fever(s), leg edema, nausea, palpitations, sense of impending doom, syncope or vomiting Treatment prior to arrival: none Risk Factors: Coronary artery disease risk factors: diabetes, smoking history and hypertension Review of Systems 2 Const: Denies: fever(s), chills or diaphoresis Card: Reports: chest pain; Denies: palpitations or syncope Resp: Denies: dyspnea GI: Denies: abdominal pain, nausea or vomiting : Denies: dysuria, urinary frequency or urinary urgency Musc: Denies: neck pain or back pain Skin/Breast: Denies: rash PFSH ED 2 PFSH: Medical History GERD (gastroesophageal reflux disease) Hypertension Diabetes Surgical History History of mastoidectomy History of elbow surgery History of knee surgery History of foot surgery Family History Other CAD (coronary artery disease) Social History Smoking and tobacco/nicotine status: current some day tobacco/nicotine user cigarettes and smokeless tobacco Alcohol intake: current Physical Exam 2 Const: COMMON NORMALS: no acute distress GENERAL APPEARANCE: cooperative and comfortable ORIENTATION/CONSCIOUSNESS: Yes awake, Yes oriented to person, Yes oriented to place and Yes oriented to time HENMT: COMMON NORMALS: normocephalic, atraumatic and hearing grossly normal bilaterally HEAD & SCALP: normocephalic and atraumatic Resp: COMMON NORMALS: normal respiratory effort, No retractions, No use of accessory muscles and clear to auscultation bilaterally AUSCULTATION: clear to auscultation bilaterally Cardio: COMMON NORMALS: regular rate, regular rhythm and No murmurs present (Cardio) RATE: regular rate RHYTHM: regular rhythm GI: COMMON NORMALS: Soft to palpation and No hepatosplenomegaly present A USCULTATION: Yes normoactive bowel sounds PALPATION: Yes Soft to palpation, No Tenderness to palpation present (GI), No Guarding due to palpation present (GI) and Yes No hepatosplenomegaly present Extremity: COMMON NORMALS: normal to inspection, capillary refill normal, no clubbing, cyanosis or edema, no calf tenderness and no pedal edema Neuro: SENSORIUM/ORIENTATION: Yes oriented to person, Yes oriented to place and Yes oriented to time Skin: COMMON NORMALS: no rashes or lesions noted GENERAL SKIN EXAM: no rashes or lesions noted Course 2 Vital Signs: Vital signs: Vital Signs Temperature 99.6 F 01/31/24 06:50 Pulse Rate 101 H 01/31/24 11:40 Respiratory Rate 16 01/31/24 10:34 Blood Pressure 176/103 01/31/24 11:40 Pulse Oximetry 92 01/31/24 11:40 Oxygen Delivery Me thod Room Air 01/31/24 11:40 MDM - Chest Pain Medical Decision Making Patient is tachypneic nontachycardic. Reported a fever at home still a low- grade fever here. Chest x-ray did not show any acute infiltrates EKGs did not show acute ST elevation. CT of the chest was negative for pulmonary embolism patient does have RSV which was on positive on the respiratory panel. Treat symptomatically discussed usual course of RSV give albuterol to use as needed follow-up as needed return if has worsening symptoms Medical Records I reviewed the patient's medical records. Lab Data I reviewed the patient's lab results. 01/31/24 07:16 01/31/24 07:16 Radiology Impressions Chest X-Ray 01/31/24 06:50 IMPRESSION: Unremarkable portable chest. Chest CTA 01/31/24 10:35 IMPRESSION: 1. Proximal main pulmonary arteries are normal. No evidence of pulmonary embolus. 2. Few scattered hazy groundglass opacities and tree-in-bud infiltrates worse in the upper lobes. Findings likely infectious or inflammatory. Slight bibasal atelectasis. Recommend correlation for COVID-19 pneumonia. 3. A few enlarged anterior mediastinal, parabronchial and hilar lymph nodes likely reactive. 4. Small esophageal hernia. 5. No other acute findings. Laboratory Results WBC 4.74 10^3/uL (3.29-11.43) 01/31/24 07:16 RBC 5.83 10^6/uL (3.85-5.65) H 01/31/24 07:16 Hgb 14.30 g/dL (11.27-16.99) 01/31/24 07:16 Hct 45.3 % (37-53) 01/31/24 07:16 MCV 77.7 fl (82-101) L 01/31/24 07:16 MCH 24.5 pg (27-33) L 01/31/24 07:16 MCHC 31.6 g/dL (30-55) 01/31/24 07:16 RDW 18.7 % (12.1-15.1) H 01/31/24 07:16 Plt Count 77 10^3/cmm (157-399) L 01/31/24 07:16 MPV 10.4 fL (7.4-10.4) 01/31/24 07:16 Neut % (Auto) 68.4 % 01/31/24 07:16 Lymph % (Auto) 15.8 % 01/31/24 07:16 [place] % (Auto) 14.6 % 01/31/24 07:16 Eos % (Auto) 0.2 % 01/31/24 07:16 Baso % (Auto) 0.6 % 01/31/24 07:16 Neut # (Auto) 3.24 10^3/uL (1.8-7.7) 01/31/24 07:16 Lymph # (Auto) 0.8 10^3/uL (0.8-4.8) 01/31/24 07:16 [place] # (Auto) 0.7 10^3/uL (0.2-0.9) 01/31/24 07:16 Eos # (Auto) 0.0 10^3/uL (0.0-0.8) 01/31/24 07:16 Baso # (Auto) 0.0 10^3/uL (0.0-0.1) 01/31/24 07:16 Nucleated RBC % (auto) 0 % 01/31/24 07:16 Nucleated RBCs # 0.0 /100WBC 01/31/24 07:16 Sodium 135 mmol/L (136-145) L 01/31/24 07:16 Potassium 3.5 mmol/L (3.5-5.1) 01/31/24 07:16 Chloride 97 mmol/L (98-107) L 01/31/24 07:16 Carbon Dioxide 24 mmol/L (22-29) 01/31/24 07:16 Anion Gap 17.5 (5-19) 01/31/24 07:16 BUN 5 mg/dL (6-20) L 01/31/24 07:16 Creatinine 0.6 mg/dL (0.7-1.2) L 01/31/24 07:16 GFR Calculation 142.6 mL/min (90-130) H 01/31/24 07:16 Glucose 178 mg/dL (65-115) H 01/31/24 07:16 Calculated Osmolality 282 mOsm/kg (285-295) L 01/31/24 07:16 Lactic Acid 1.3 mmol/L (0.5-2.2) 01/31/24 07:16 Calcium 8.9 mg/dL (8.5-10.5) 01/31/24 07:16 Total Bilirubin 0.9 mg/dL (0.15-1.2) 01/31/24 07:16 AST 28 U/L (0-40) 01/31/24 07:16 ALT 31 U/L (0-41) 01/31/24 07:16 Alkaline Phosphatase 131 U/L (40-130) H 01/31/24 07:16 Troponin T Baseline 30 ng/L (0-15) H 01/31/24 07:16 Troponin T 120 Minute 29.54 ng/L (0-15) H 01/31/24 09:16 Delta Troponin T -0.46 ABS# (0-10) L 01/31/24 09:16 Total Protein 6.9 g/dL (6.6-8.7) 01/31/24 07:16 Albumin 4.0 g/dL (3.5-5.2) 01/31/24 07:16 Globulin 2.9 g/dL (1.3-4.6) 01/31/24 07:16 Adenovirus (PCR) Not detected (NOT DETECT) 01/31/24 08:12 C. pneumoniae DNA (PCR) Not detected (NOT DETECT) 01/31/24 08:12 Coronavirus 229E (PCR) Not detected (NOT DETECT) 01/31/24 08:12 Human Metapneumovir PCR Not detected (NOT DETECT) 01/31/24 08:12 Influenza A (H1) PCR Not detected (NOT DETECT) 01/31/24 08:12 Influ A (H1/09) PCR Not detected (NOT DETECT) 01/31/24 08:12 Influenza A (H3) PCR Not detected (NOT DETECT) 01/31/24 08:12 Influenza Type A (PCR) Not detected (NOT DETECT) 01/31/24 08:12 Influenza Type B (PCR) Not detected (NOT DETECT) 01/31/24 08:12 M. pneumoniae (PCR) Not detected (NOT DETECT) 01/31/24 08:12 Parainfluenza 1 (PCR) Not detected (NOT DETECT) 01/31/24 08:12 Parainfluenza 2 (PCR) Not detected (NOT DETECT) 01/31/24 08:12 Parainfluenza 3 (PCR) Not detected (NOT DETECT) 01/31/24 08:12 Parainfluenza 4 (PCR) Not detected (NOT DETECT) 01/31/24 08:12 RSV Type A (PCR) Not detected (NOT DETECT) 01/31/24 08:12 RSV Type B (PCR) Detected (NOT DETECT) A 01/31/24 08:12 Entero/Rhino (PCR) Not detected (NOT DETECT) 01/31/24 08:12 SARS-CoV-2 (PCR) Not detected (NOT DETECT) 01/31/24 08:12 All radiology interpretation(s) finalized by discharge Discharge Plan Discharge Patient Disposition: Home Clinical Impression: RSV infection Condition: Stable Prescriptions: New albuterol sulfate 90 mcg/actuation HFA aerosol inhaler 2 inh INHALATION Q4H PRN (Reason: shortness of breath or wheezing) Qty: 18 0RF No Action losartan 100 mg tablet 100 mg PO DAILY Qty: 90 3RF spironolactone 25 mg tablet 25 mg PO DAILY Qty: 90 3RF metformin 1,000 mg tablet 1,000 mg PO BID omeprazole 20 mg capsule,delayed release(DR/EC) 20 mg PO QAM glipizide 5 mg tablet 5 mg PO BID Jardiance 25 mg tablet 25 mg PO QAM atorvastatin 80 mg Tablet 40 mg PO DAILY cetirizine 10 mg Tablet 10 mg PO DAILY PRN (Reason: ALLERGIES) sildenafil 100 mg Tablet See Rx Instructions .ROUTE .COMPLEX PRN (Reason: Sexual Activity) Rx Instructions: TAKE 1 TABLET BY MOUTH 1 HOUR PRIOR TO SEXUAL ACTIVITY disulfiram 250 mg tablet 250 mg PO DAILY trazodone 100 mg tablet 100 mg PO BEDTIME PRN (Reason: Sleep) amlodipine 10 mg tablet 10 mg PO DAILY testosterone cypionate 200 mg/mL oil See Rx Instructions .ROUTE .COMPLEX Rx Instructions: INJECT 200MG/ML DEEP IM EVERY 2 WEEKS FOR LOW TESTOSTERONE fluticasone propionate 50 mcg/actuation [place],Suspension 1 spray INTRANASAL DAILY PRN (Reason: ALLERGIES) Rx Instructions: administer into each nostril buspirone 15 mg Tablet 15 mg PO TID aripiprazole [Abilify] 10 mg tablet 5 mg PO DAILY ferrous sulfate [FeroSul] 325 mg (65 mg iron) tablet 325 mg PO DAILY metoprolol succinate 200 mg tablet extended release 24 hr 200 mg PO DAILY Discharge Orders: Discharge ED (Routine); Ordered 01/31/24 Ordered By: Daniel Taylor Referrals: Balbina Segura MD [Primary Care Provider] - Discharge Diet: Usual diet Discharge Activity: Increase activity as tolerated Patient Instructions: RSV (Respiratory Syncytial Virus) Infection (ED), Opioid Safety, Pain Management Activity Restrictions/Additional Instructions: Thank you for choosing [facility] for your healthcare needs today. Please realize this is an emergency room and that we are providing you with a medical screening exam and this may not be complete and all inclusive of all the testing and or work up that you may need to determine your ailment or severity of your illness. It is very important that you follow up as instructed or that you return to the Emergency Department should you have concerns or if your condition changes or worsens in any way. You were seen today for a cough and fever and chest pain. Your cardiac enzymes and EKG were normal. Your white count showed a decreased platelet count but the remainder was not significantly abnormal. Her respiratory swab showed positive for RSV infection. This will cause cough shortness of breath fever and sometimes some chest discomfort. There are no antibiotics to treat this is as a viral infection resolves on its own but can take several weeks to resolve. 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
--- NOTE | 2024-01-31 07:32 | PC.NURSE ---
PT STATES HE TOOK 324MG OF ASPIRIN THIS AM.
[2024-01-31 07:38] LABS: Basophils % 0.6 %; Eosinophils % 0.2 %; Hematocrit 45.3 % (37-53); Lymphocytes # 0.8 10^3/uL (0.8-4.8); Lymphocytes % 15.8 %; Mean Corpuscular HGB Conc 31.6 g/dL (30-55); Mean Corpuscular Hemoglobin 24.5 pg (27-33); Mean Corpuscular Volume 77.7 fl (82-101); Mean Platelet Volume 10.4 fL (7.4-10.4); Monocytes # 0.7 10^3/uL (0.2-0.9); Monocytes % 14.6 %; Neutrophils # 3.24 10^3/uL (1.8-7.7); Neutrophils % 68.4 %; Nucleated Red Blood Cells % 0 %; Platelet Count 77 10^3/cmm (157-399); Red Blood Count 5.83 10^6/uL (3.85-5.65); Red Cell Distribution Width 18.7 % (12.1-15.1); White Blood Count 4.74 10^3/uL (3.29-11.43)
[2024-01-31 07:58] LABS: Lactic Sepsis W/Reflex 1.3 mmol/L (0.5-2.2)
[2024-01-31 07:59] LABS: Troponin(5th) Baseline 30 ng/L (0-15)
[2024-01-31 08:05] LABS: Alanine Aminotransferase 31 U/L (0-41); Alkaline Phosphatase 131 U/L (40-130); Anion Gap 17.5 (5-19); Aspartate Amino Transferase 28 U/L (0-40); Blood Urea Nitrogen 5 mg/dL (6-20); Calcium 8.9 mg/dL (8.5-10.5); Carbon Dioxide 24 mmol/L (22-29); Chloride 97 mmol/L (98-107); Creatinine Clr Calc Pharmacy 220.0883; Globulin 2.9 g/dL (1.3-4.6); Glomerular Filtration Rate 142.6 mL/min (90-130); Glucose 178 mg/dL (65-115); Osmolality Calculated 282 mOsm/kg (285-295); Potassium 3.5 mmol/L (3.5-5.1); Sodium 135 mmol/L (136-145); Total Bilirubin 0.9 mg/dL (0.15-1.2); Total Protein 6.9 g/dL (6.6-8.7)
--- NOTE | 2024-01-31 08:06 | PC.PHAR ---
PT IS [facility] LIST 01/31/24 8:05AM
--- NOTE | 2024-01-31 08:26 | ECG_ITS ---
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 Measurements Intervals [place] Rate: 95 P: 63 [place]: 171 QRS: 57 QRSD: 88 T: 88 QT: 365 QTc: 461 Interpretive Statements SINUS RHYTHM WITH FREQUENT VENTRICULAR PREMATURE COMPLEXES Compared to ECG 01/31/2024 06:54:22 Sinus tachycardia no longer present ST (T wave) deviation no longer present Electronically Signed On 01-31-2024 16:52:26 CDT by Tho Segura M.D. [email or web address]
[2024-01-31 08:27] VITALS: PULSE 95; O2SAT 92
[2024-01-31 09:56] LABS: Troponin 5 2HR 29.54 ng/L (0-15)
[2024-01-31 09:57] LABS: Troponin 5 2HR Delta -0.46 ABS# (0-10)
[2024-01-31 10:34] VITALS: BP 153/92; PULSE 106; RESP 16; O2SAT 93
--- NOTE | 2024-01-31 10:35 | CT_ITS ---
WS: [id number] CTA OF THE CHEST WITH PULMONARY EMBOLISM PROTOCOL TECHNIQUE: High-resolution contrast enhanced CTA of the chest with coronal and sagittal reformatted i mages with pulmonary embolism protocol. MIP images are also reviewed. CLINICAL INFORMATION: dyspnea/chest pain COMPARISON: None. DLP: 587.[address] scans at [facility] use at least one of these dose optimization techniques: automated e xposure control; mA and/or kV adjustment per patient size (includes targeted exams where dose is matc hed to clinical indication); or iterative reconstruction. FINDINGS: Proximal main pulmonary arteries are patent. Normal segmental and subsegmental pulmonary arteries. No evidence of pulmonary embolus. Normal caliber thoracic aorta. A few prominent anterior mediastinal a nd parabronchial and hilar lymph nodes likely reactive. Bronchovascular thickening along the natividad. Partially visualized adrenal glands are normal. Diffuse fatty infiltration of the liver. Small esopha geal hernia. Mild thoracic curve. Patchy perihilar tree-in-bud type infiltrates more prominent in the RIGHT upper lobe and LEFT upper l obe anteriorly. This is likely infectious or inflammatory. A few hazy groundglass opacities., Correla tion for COVID-pneumonia. Slight bibasal atelectasis. CT/CT angio chest PE protcl [id number] IMPRESSION: 1. Proximal main pulmonary arteries are normal. No evidence of pulmonary embol us. 2. Few scattered hazy groundglass opacities and tree-in-bud infiltrates worse in the upper lobes. Findings likely infectious or inflammatory. Slight bibasal atelectasis. Recommend correlation for COVID-19 pneumonia. 3. A few enlarged anterior mediastinal, parabronchial and hilar lymph nodes li kamron reactive. 4. Small esophageal hernia. 5. No other acute findings.
[2024-01-31 10:58] LABS: Adenovirus Not Detected (NOT DETECT); Chlamydia Pneumoniae Not Detected (NOT DETECT); Coronavirus 229E,HKU1,NL63,OC4 Not Detected (NOT DETECT); Human Metapneumovirus Not Detected (NOT DETECT); Human Rhinovirus/Enterovirus Not Detected (NOT DETECT); Influenza A Not Detected (NOT DETECT); Influenza A H1 Not Detected (NOT DETECT); Influenza A H1-2009 Not Detected (NOT DETECT); Influenza A H3 Not Detected (NOT DETECT); Influenza B Not Detected (NOT DETECT); Mycoplasma Pneumoniae Not Detected (NOT DETECT); Parainfluenza Virus Type 1 Not Detected (NOT DETECT); Parainfluenza Virus Type 2 Not Detected (NOT DETECT); Parainfluenza Virus Type 3 Not Detected (NOT DETECT); Parainfluenza Virus Type 4 Not Detected (NOT DETECT); Respiratory Syncytial Virus A Not Detected (NOT DETECT); SARS-COV-2 Not Detected (NOT DETECT)
[2024-01-31 11:00] LABS: Respiratory Syncytial Virus B Detected (NOT DETECT)
[2024-01-31] MEDS: iohexol 350 mg/mL 500 mL Btl (per mL) IV (11:13)
[2024-01-31 11:40] VITALS: BP 176/103; PULSE 101; O2SAT 92
== END 2024-01-31 12:05 | disposition home or self-care (01) ==
PROVIDERS: Emergency Provider Family Medicine; PCP Family Medicine
DX: J22 Unspecified acute lower respiratory infection (principal); B97.4 Respiratory syncytial virus as the cause of diseases classified elsewhere; I10 Essential (primary) hypertension; E11.9 Type 2 diabetes mellitus without complications; F17.220 Nicotine dependence, chewing tobacco, uncomplicated; Z79.84 Long term (current) use of oral hypoglycemic drugs
CPT/HCPCS: 36415; 71045; 71275; 80053; 83605; 84484; 85025; 87040; 87486; 87581; 87633; 93005; 99285; Q9967